=== PATIENT | male | born 1990 | race Caucasian/White ===

== ENCOUNTER 2020-04-05 19:26 | Emergency (ER) | payer MEDICAID, SELFPAY ==
[2020-04-05 19:41] VITALS: BP 144/96; PULSE 100; RESP 20; TEMP 36.8; O2SAT 97
--- NOTE | 2020-04-05 20:48 | ED.GENADULT ---
HPI - General Adult General Chief complaint: Wound/Laceration Stated complaint: boils on my butt Time Seen by Provider: 04/05/20 19:40 Source: patient Mode of arrival: ambulatory Limitations: no limitations History of Present Illness HPI narrative: Patient is a 29-year-old who presents with a week long duration of tender swollen area in the gluteal cleft patient notes he thought he had shaved his buttock from work did not realize he had an abscess patient notes aching pain with some nausea denies fever or vomiting patient denies similar occurrence injury or trauma tried [id number] medications for symptoms and is otherwise in no distress upon arrival Related Data Allergies Allergy/AdvReac Type Severity Reaction Status Date / Time No Known Allergies Allergy Verified 04/05/20 19:26 Review of Systems Review of Systems: All systems reviewed & are unremarkable except as noted in HPI and below PMFSH Past Medical History Medical History (Updated 04/05/20 @ 20:57 by Yao Segura PA-C) Hepatitis C Social History Social History (Updated 04/05/20 @ 20:52 by Yao Segura PA-C) Smoking status: Current every day smoker Gender identity (if verbalized by the patient): Male Exam Narrative: Exam Narrative: GENERAL: Well-appearing, well-nourished, and in no acute distress. HEAD: Normocephalic, atraumatic. EYES: PERRLA and EOMI. ENT: Nares clear, no rhinorrhea or epistaxis. Mucous membranes moist. EXTREMITIES: Normal range of motion. No edema. SKIN: Warm, dry, no rash. Red tender to centimeter area in the gluteal cleft consistent with pilonidal abscess. Patient with some pink tender area surrounding the perirectum consistent with diaper rash NEURO: No focal deficits. Alert and oriented x3. PSYCH: Normal mood and affect. Course Course Emergency Course: Patient had I&D of the abscess in the emergency department will be discharged home treated outpatient and given follow-up and reasons to return Vital Signs Vital signs: Vital Signs Temperature 98.2 F 04/05/20 19:41 Pulse Rate 100 04/05/20 19:41 Respiratory Rate 20 04/05/20 19:41 Blood Pressure 144/96 H 04/05/20 19:41 Pulse Oximetry 97 04/05/20 19:41 Temperature 98.2 F 04/05/20 19:41 Pulse Rate 100 04/05/20 19:41 Respiratory Rate 20 04/05/20 19:41 Blood Pressure 144/96 H 04/05/20 19:41 Pulse Oximetry 97 04/05/20 19:41 Procedures Abscess I/D other: Date of Incision: 04/05/20 Time of Incision: 20:55 Local Anesthetic: lidocaine 1% Technique: incised with #11 blade and probed loculations Irrigation: Yes Packing used?: iodoform I&D Results: Pus and Blood Medical Decision Making MDM Narrative Medical decision making narrative: Patient with abscess that was I&D it in the emergency department will be discharged home with plan follow-up with primary care and given reasons to return afebrile appearing no distress felt appropriate for outpatient reevaluation Vital Signs Vital Signs: Vital Signs Temperature 98.2 F 04/05/20 19:41 Pulse Rate 100 04/05/20 19:41 Respiratory Rate 20 04/05/20 19:41 Blood Pressure 144/96 H 04/05/20 19:41 Pulse Oximetry 97 04/05/20 19:41 Temperature 98.2 F 04/05/20 19:41 Pulse Rate 100 04/05/20 19:41 Respiratory Rate 20 04/05/20 19:41 Blood Pressure 144/96 H 04/05/20 19:41 Pulse Oximetry 97 04/05/20 19:41 Discharge Plan Discharge Clinical Impression: Pilonidal abscess, Abscess Patient Disposition: Home, Self-Care Condition: Stable Instructions: Antibiotic Form, Abscess (ED) Additional Instructions: Follow up with primary care in the next 2-3 days for re-evaluation and packing removal if placed take antibiotics as directed. return if symptoms worsen or concerns, any increase in redness swelling pain or fever over 100.5 If packing was placed it must come out in 3 days. Clean wound with mild soapy water.
[2020-04-05] MEDS: IBUPROFEN 600 MG TABLET PO (21:05)
== END 2020-04-05 21:07 | disposition home or self-care (01) ==
PROVIDERS: Emergency Provider Emergency Medicine
DX: L05.01 Pilonidal cyst with abscess (principal); F17.200 Nicotine dependence, unspecified, uncomplicated; Z86.19 Personal history of other infectious and parasitic diseases
CPT/HCPCS: 10061; 10080; 99283; A9270

== ENCOUNTER 2020-04-13 18:41 | Emergency (ER) | payer MEDICAID, SELFPAY ==
--- NOTE | ~2020-04-13 | CT_ITS ---
EXAMINATION: CT brain wo con INDICATION: Head injury COMPARISON: 06/11/2015 TECHNIQUE: Standard unenhanced head CT. The dose-length product (DLP) was 681.00 mGy-cm. The mA was a djusted according to patient size. Iterative reconstruction technique was employed. FINDINGS: There is no intracranial hemorrhage, acute infarction, or abnormal mass lesion. The ventric les are normal. There is no abnormal mass effect or midline shift. The carrillo-white matter differentiat ion is normal. The basal cisterns are patent. The orbits are normal. There is mild mucosal thickening of the paranasal sinuses. IMPRESSION: 1. No acute intracranial abnormality. Reviewed, dictated and finalized at location A. SEAM ENVELOPE MACHINE OPERATOR
--- NOTE | ~2020-04-13 | CT_ITS ---
EXAMINATION: CT facial & cervical spine wo DATE: 04/13/2020 19:46 INDICATION: Facial pain, head injury TECHNIQUE: Computed tomography (CT) of the maxillofacial region and cervical spine was performed with out intravenous contrast. The dose-length product (DLP) was 425.39 mGy-cm. Automated exposure control and iterative reconstruction technique were employed. COMPARISON: None FINDINGS: MAXILLOFACIAL CT: There is an old, healed depressed fracture of the left maxillary sinus. No acute fracture is identifi ed. There is nasal soft tissue swelling. Mild mucosal thickening is noted in the paranasal sinuses. T he left ostiomeatal complex is occluded. There is chronic rightward deviation of the nasal septum. CERVICAL SPINE CT: There is no fracture, dislocation, or subluxation. The vertebral body heights, alignment, and interve rtebral disc spaces are normal. The odontoid is intact. The prevertebral soft tissues are normal. IMPRESSION: 1. Minimal opacification of the paranasal sinuses without acute facial fracture identified. 2. Normal cervical spine. Reviewed, dictated and finalized at location A. ECTOR SOLDERING
[2020-04-13 18:54] VITALS: BP 100/61; PULSE 96; RESP 16; TEMP 36.6; O2SAT 100
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
[2020-04-13] MEDS: FLUORESCEIN SOD 1 MG/STRIP RIGHT EYE (19:21)
[2020-04-13] MEDS: TETRACAINE HCL 0.5% OPHTH SOLN 4 ML BTL 1 DROP RIGHT EYE (19:21)
--- NOTE | 2020-04-13 19:29 | PC.NURSE ---
patient ambulated to desk for 2nd attempt at visual acuity. states everything is blurry when attempting to read the chart with his left eye covered. right eye is constantly watering. pain is much better. check charted.
[2020-04-13] MEDS: TETANUS,DIPHTHERIA,AC PERTUSSIS ADULT (0.5 ML) BOOSTRIX IM (19:41)
--- NOTE | 2020-04-13 19:51 | PC.NURSE ---
patient back from CT. provider in room.
--- NOTE | 2020-04-13 20:04 | PC.NURSE ---
resting on stretcher. waiting for CT results. family member in room. c/o right eye pain. updated on treatment plan and expected wait time.
[2020-04-13] MEDS: oxyCODONE/ACETAMINOPHEN (*CRX) 5-325 MG TABLET 2 TABLET PO (20:58)
--- NOTE | 2020-04-13 21:00 | PC.NURSE ---
patient medicated as ordered.
--- NOTE | 2020-04-13 21:11 | PC.NURSE ---
this RN to bedside with Dr. Govea. discharge instructions and prescriptions reviewed with patient and . both verbalize understanding. has appointment on wednesday at [facility]. both parties aware.
[2020-04-13 21:12] VITALS: BP 162/88; PULSE 100; RESP 16; TEMP 36.8; O2SAT 96
== END 2020-04-13 21:14 | disposition home or self-care (01) ==
PROVIDERS: Emergency Provider Emergency Medicine; PCP Family Medicine
DX: S05.02XA Injury of conjunctiva and corneal abrasion without foreign body, left eye, initial encounter (principal); Y04.0XXA Assault by unarmed brawl or fight, initial encounter; Z23 Encounter for immunization; F17.210 Nicotine dependence, cigarettes, uncomplicated; F41.9 Anxiety disorder, unspecified; Z86.19 Personal history of other infectious and parasitic diseases
CPT/HCPCS: 70450; 70486; 72125; 90471; 90715; 99284; A9270

== ENCOUNTER 2020-12-03 19:03 | Emergency (ER) | payer BC, SELFPAY ==
[2020-12-03 19:17] VITALS: BP 134/85; PULSE 106; RESP 16; TEMP 36.4; O2SAT 96
--- NOTE | 2020-12-03 20:39 | ED.SKABFB ---
HPI - Skin/Abscess/Foreign Bdy General Chief complaint: Skin/Abscess/Foreign Body Stated complaint: Sores all over body History of Present Illness HPI narrative: This is a year old male that is very disheveled and has a lot of sores all over his body majority of it was on his back and arm. Patient states that the scabs and sore or his body are painful at time . Denies fever, nausea and or vomiting . Patient is questioning as to weather or not he is septic or not. Patient informs me he last used drugs yesterday. Patient states that the sores have been her for over a month. Patient states that he placed peroxide on the areas, neosporin. Related Data Home Medications Medication Instructions Recorded Confirmed No Home Medications 12/03/20 12/03/20 Allergies Allergy/AdvReac Type Severity Reaction Status Date / Time No Known Allergies Allergy Verified 12/03/20 20:11 Review of Systems Review of Systems: CONSTITUTIONAL: Denies fever, chills, or sweats. EYES: Denies visual changes, redness, or discharge. ENT: Denies rhinorrhea, congestion, sore throat, or otalgia. CARDIOVASCULAR:Denies chest pain, palpitations, or edema. RESPIRATORY: Denies cough or dyspnea. GASTROINTESTINAL: Denies abdominal pain, nausea, vomiting, or diarrhea. GENITOURINARY: Denies dysuria or hematuria. SKIN:reports rash or itching. MUSCULOSKELETAL:Denies back pain, joint pain, or myalgia. NEUROLOGIC: Denies headache, numbness, or weakness. PSYCHIATRIC:Denies anxiety or depression [facility] Social History Social History Smoking status: Current every day smoker Alcohol intake: never Comments At time as signature, I have reviewed and agree with nursing past medical, social, surgical and family history. Please see nursing chart for further information. There is no relevant family history pertinent to the presenting complaint. Exam Narrative: GENERAL:Well-appearing, Disheleved and in no acute distress. HEAD:Normocephalic, EYES: PERRLA ENT: Nares clear, no rhinorrhea or epistaxis. Mucous membranes moist. NECK: Supple. CHEST: No respiratory distress. HEART: Regular rate and rhythm. Normal peripheral pulses. ABDOMEN: Soft, nontender, nondistended, EXTREMITIES: Normal range of motion. No edema. SKIN: Warm, dry, Patient has multiple to many to count open areas in multiple stages of healing some with scabs some with open area with erythema and some completly healed on back bilateral arms, bilateral legs, and stomach NEURO: No focal deficits. Alert and oriented x3. Course BENCH LATHE OPERATOR/PA Physician Supervision discussed drug use with patient information given on drug detox and phone numbers given and help line given as well. Vital Signs Vital signs: Vital Signs Temperature 97.6 F 12/03/20 19:17 Pulse Rate 106 H 12/03/20 19:17 Respiratory Rate 16 12/03/20 19:17 Blood Pressure 134/85 12/03/20 19:17 Pulse Oximetry 96 12/03/20 19:17 Temperature 97.6 F 12/03/20 19:17 Pulse Rate 106 H 12/03/20 19:17 Respiratory Rate 16 12/03/20 19:17 Blood Pressure 134/85 12/03/20 19:17 Pulse Oximetry 96 12/03/20 19:17 MDM - Skin/Abscess/Foreign Bdy Differential Diagnosis Differential diagnosis: Likely abscess of skin or subcutaneous tissue, urticaria, herpes zoster, cellulitis, eczema, impetigo and contact dermatitis Discharge Plan Discharge Clinical Impression: Abscess of skin or subcutaneous tissue, MRSA infection Patient Disposition: Home, Self-Care Condition: Stable Instructions: Antibiotic Form, Acute Rash (ED), Methamphetamine Abuse (ED) Additional Instructions: Use skin creams/lotion, such as those containing calamine or pramoxine to reduce itchiness Avoid scratching when possible to prevent worsening of the condition and disruption of the skin that could lead to bacterial infection To relieve itching, place a cool washcloth or some ice over the area that itches, rather than scratching Return to the office or seek
== END 2020-12-03 20:48 | disposition home or self-care (01) ==
PROVIDERS: Emergency Provider Nurse Practitioner Family
DX: L02.414 Cutaneous abscess of left upper limb (principal); L02.413 Cutaneous abscess of right upper limb; L02.416 Cutaneous abscess of left lower limb; L02.415 Cutaneous abscess of right lower limb; L02.211 Cutaneous abscess of abdominal wall; B95.62 Methicillin resistant Staphylococcus aureus infection as the cause of diseases classified elsewhere; F17.200 Nicotine dependence, unspecified, uncomplicated
CPT/HCPCS: 99203; G0463

== ENCOUNTER 2020-12-08 17:07 | Emergency (ER) | payer BC, SELFPAY ==
[2020-12-08] VITALS (10 sets, daily range): BP systolic 134–148; BP diastolic 92–108; PULSE 67–92; RESP 15–20; TEMP 36.4–36.7; O2SAT 98–100
--- NOTE | ~2020-12-08 | CT_ITS ---
EXAMINATION: CT abdomen pelvis wo con DATE: 12/08/2020 19:13 INDICATION: Right flank pain. Right lower quadrant abdominal pain. TECHNIQUE: Computed tomography (CT) of the abdomen and pelvis was performed without intravenous contr ast. Automated exposure control and iterative reconstruction technique were employed. The dose-length product was 273.64 mGy-cm. COMPARISON: CT abdomen and pelvis 02/09/2017 FINDINGS: The visualized portions of the lung bases demonstrate a pneumatocele in left lower lobe. No pleural effusion. The heart size is normal. No pericardial effusion. There is diffuse hepatic steato sis. The gallbladder is normal. Calcifications in the spleen are consistent with old granulomatous di sease. The pancreas and adrenal glands are normal. There is mild right hydronephrosis and hydroureter . There is a 4 mm stone in the mid right ureter where the ureter crosses the iliac vessels. There are three 1-2 mm stones in left kidney. There are no dilated loops of bowel. The appendix is not visuali zed. There are no pathologically enlarged lymph nodes. There is no free intraperitoneal fluid. There is mild thoracolumbar spondylosis. IMPRESSION: 1. 4 mm stone in mid right ureter with mild right hydronephrosis and proximal hydroureter. 2. Small nonobstructing left kidney stones. Reviewed, dictated and finalized at location A. IMPRESSION: 1. 4 mm stone in mid right ureter with mild right hydronephrosis and proximal h ydroureter. 2. Small nonobstructing left kidney stones.
[2020-12-08 18:01] LABS: Basophils Absolute Auto 0.1 K/mm3 (0.0-0.1); Basophils Percent Auto 0.7 % (0.2-1.2); Eosinophils Percent Auto 0.3 % (0-4.4); Hematocrit 47.2 % (42.0-52.0); Hemoglobin 15.6 g/dL (14.0-18.0); Immature Granulocyte Absolute 0.06 K/mm3 (0.00-0.031); Immature Granulocyte Percent A 0.5 % (0-0.5); Lymphocytes Absolute Auto 2.26 K/mm3 (0.9-3.2); Lymphocytes Percent Auto 18.4 % (18.3-44.2); Mean Corpuscular HGB Conc 33.1 g/dl (32-36); Mean Corpuscular Hemoglobin 29.4 pg (26-34); Mean Corpuscular Volume 89.1 fl (80-100); Mean Platelet Volume 9.3 fl (7.4-10.4); Monocytes Absolute Auto 0.9 K/mm3 (0.1-0.6); Monocytes Percent Auto 7.6 % (2.6-8.5); Neutrophils Absolute Auto 8.9 K/mm3 (1.3-6.7); Neutrophils Percent Auto 72.5 % (45.5-73.1); Platelet Count Result 248 k/mm3 (150-375); Red Cell Distribution Width 11.5 % (11.5-14.5); White Blood Count 12.3 K/mm3 (4.5-10.0)
[2020-12-08 18:11] LABS: Add Urine Microscopic? YES; Appearance Urine Clear (Clear); Bilirubin Urine Negative (Negative); Blood Urine 2+ (Negative); Color Urine Yellow (Yellow); Glucose Urine UA Negative (Negative); Ketones Urine Negative (Negative); Leukocyte Esterase Ur Negative LEU/UL (Negative); Mucus Urine Rare /lpf; Nitrate Urine Negative (Negative); Protein Urine Negative (Negative); RBC Urine 21-50 /hpf (0-2); Urobilinogen Urine Negative mg/dL (<2.0); WBC Urine 0-3 /hpf
[2020-12-08 18:16] LABS: Alanine Aminotransferase 132 U/L (4-50); Albumin Level 4.4 g/dL (3.5-5.1); Alkaline Phosphatase 78 U/L (38-126); Anion Gap 9 mmol/L (8-16); Aspartate Amino Transferase 62 U/L (17-59); Bilirubin,Total 0.5 mg/dL (0.2-1.3); Blood Urea Nitrogen 13 mg/dL (9-20); Calcium 9.8 mg/dL (8.4-10.2); Carbon Dioxide 31 mmol/L (22-30); Chloride 103 mmol/L (98-107); Estimated CRCL calculation 82 ml/min; Estimated Glomerular Filt Rate > 60; Glucose 107 mg/dL (65-110); Lipase 23 U/L (23-300); Potassium 3.9 mmol/L (3.4-5.0); Sodium 143 mmol/L (137-145)
--- NOTE | 2020-12-08 19:44 | ED.ABDPAIN ---
HPI - Abdominal Pain General Chief Complaint: Abdominal Pain Stated Complaint: right lower abd pain Time Seen by Provider: 12/08/20 18:49 Source: patient Mode of arrival: ambulatory Limitations: no limitations History of Present Illness HPI narrative: 30-year-old male Recently treated for a pustular MRSA skin infection Reports having a little bit of right-sided abdominal discomfort for a couple of days but about 5 hours ago the experience became much more intense with severe pain and nausea and vomiting He has not had a fever he has not had any diarrhea or constipation He does think he may have had some hematuria but does not have any dysuria or frequency Related Data Allergies Allergy/AdvReac Type Severity Reaction Status Date / Time No Known Allergies Allergy Verified 04/08/20 14:18 Review of Systems Review of Systems: All systems reviewed & are unremarkable except as noted in HPI and below Constitutional: Constitutional: Reports no additional constitutional complaints, Denies chills, Denies fever(s) and Denies headache(s) Eyes: Eyes: Reports no additional eye complaints and Denies change in vision ENT: Denies headache(s) and Denies sore throat Cardiovascular: Cardiovascular: Denies chest pain and Denies dyspnea Respiratory: Respiratory: Denies cough and Denies dyspnea Gastrointestinal: Gastrointestinal: Reports abdominal pain, Denies bloating, Denies constipation, Denies diarrhea, Reports nausea and Reports vomiting Genitourinary: Genitourinary: Reports hematuria, Denies dysuria and Denies urinary frequency Musculoskeletal: Musculoskeletal: Denies deformity, Denies arthralgias, Denies joint swelling and Denies numbness Integumentary/Breasts: Skin/Breast: Reports erythema, Reports rash and Denies wounds Neurologic: Denies headache(s), Denies focal weakness and Denies numbness Psychiatric: Psychiatric: Reports no additional psychiatric complaints Endocrine: Endocrine: Reports no additional endocrine complaints Hematologic/Lymphatic: Hematologic/Lymphatic: Reports no additional hematologic/lymphatic complaints Allergic/Immunologic: Allergic/Immunologic: Reports no additional allergic/immunologic complaints [facility] Past Medical History Medical History Allergic rhinitis Anxiety H/O intravenous drug use in remission Hepatitis C Surgical History Surgical History History of appendectomy Social History Social History Years smoked: 14 Smoking status: Current every day smoker Tobacco type: cigarettes Gender identity (if verbalized by the patient): Male Exam Const: General: cooperative, no acute distress and alert Orientation/consciousness: patient oriented x3 (alert) HENMT: Head: normal to inspection, normocephalic and atraumatic Ears: external ears normal General nose exam: no epistaxis Eyes: Conjunctivae: conjunctivae normal EOM: EOMs intact bilaterally Neck: Neck: normal visual inspection, supple and no JVD Resp: Effort & Inspection: normal respiratory effort and not labored Auscultation: other (BS =) Cardio: Rate: regular rate Rhythm: regular rhythm Heart sounds: no murmurs GI: Inspection: non-distended GI Palp: Yes Soft to palpation, No Tenderness to palpation present (GI), No Guarding due to palpation present (GI) and No Rebound tenderness present : General: Yes no CVA tenderness Skin: General skin exam: normal color and no rashes or lesions noted Other: Numerous healing and scabbed over lesions on the upper back and arms Neuro: General: patient oriented x3 (alert) and moves all extremities Speech: normal speech Extrem: General: no edema Psych: Affect: normal affect Course Vital Signs Vital signs: Vital Signs Temperature 36.4 C L 12/08/20 17:27 Pulse Rate 92 12/08/20 17:27 Respiratory Rat
[2020-12-08] MEDS: KETOROLAC 30 MG/ML VIAL (*BKC) IV PUSH (19:48)
[2020-12-08] MEDS: ONDANSETRON INJ 4 MG/2 ML VIAL IV PUSH (19:48)
[2020-12-08] MEDS: TAMSULOSIN HCL 0.4 MG CAPSULE PO (19:55)
[2020-12-08] MEDS: oxyCODONE/ACETAMINOPHEN (*CRX) 5-325 MG TABLET 1 TABLET PO (20:51)
== END 2020-12-08 21:31 | disposition home or self-care (01) ==
PROVIDERS: Emergency Provider Emergency Medicine
DX: N23 Unspecified renal colic (principal); F17.210 Nicotine dependence, cigarettes, uncomplicated; F41.9 Anxiety disorder, unspecified
CPT/HCPCS: 36415; 74176; 80053; 81001; 83690; 85025; 96374; 96375; 99284; A9270; J1885; J2405

== ENCOUNTER 2020-12-19 08:20 | Emergency (ER) | payer BC, SELFPAY ==
[2020-12-19] VITALS (15 sets, daily range): BP systolic 121–141; BP diastolic 78–115; PULSE 50–73; RESP 14–16; O2SAT 98–100
--- NOTE | ~2020-12-19 | CT_ITS ---
EXAMINATION: CT abdomen pelvis w con DATE: 12/19/2020 10:22 INDICATION: Right lower quadrant abdominal pain. Hematuria. TECHNIQUE: Computed tomography (CT) of the abdomen and pelvis was performed with 100 mL Omnipaque-350 intravenous contrast. Automated exposure control and iterative reconstruction technique were employe d. The dose-length product was 285.12 mGy-cm. COMPARISON: 12/08/2020 FINDINGS: There is motion artifact in the pelvis. Pneumatocele in the left lower lobe. Heart size is normal. No pericardial or pleural effusion. Liver, gallbladder, spleen, pancreas and bilateral adrenal glands a re normal. A couple unchanged 1-2 mm stones in the left kidney. 3-4 mm stone previously seen in the m id right ureter has advanced, now seen in the distal ureter approximately 2 cm from the ureterovesicu lar junction. Persistent mild to moderate right hydroureteronephrosis. Partially decompressed bladder is unremarkable. Bowels are unremarkable with no obstruction. No free intraperitoneal gas or fluid. No pathologically enlarged abdominal or pelvic lymphadenopathy. Mild thoracolumbar spondylosis. IMPRESSION: 1. Advancement of a 3-4 mm stone now in the distal right ureter with persistent mild to moderate righ t hydroureteronephrosis. 2. A couple unchanged nonobstructing 1 cm left renal stones. Reviewed, dictated and finalized at location A. IMPRESSION: 1. Advancement of a 3-4 mm stone now in the distal right ureter with persistent mild to moderate right hydroureteronephrosis. 2. A couple unchanged nonobstructing 1 cm left renal stones.
[2020-12-19 08:37] LABS: Basophils Absolute Auto 0.1 K/mm3 (0.0-0.1); Basophils Percent Auto 0.8 % (0.2-1.2); Eosinophils Absolute Auto 0.1 K/mm3 (0-0.3); Eosinophils Percent Auto 1.1 % (0-4.4); Hematocrit 41.7 % (42.0-52.0); Hemoglobin 13.6 g/dL (14.0-18.0); Immature Granulocyte Absolute 0.02 K/mm3 (0.00-0.031); Immature Granulocyte Percent A 0.3 % (0-0.5); Lymphocytes Percent Auto 29.2 % (18.3-44.2); Mean Corpuscular HGB Conc 32.6 g/dl (32-36); Mean Corpuscular Hemoglobin 28.9 pg (26-34); Mean Corpuscular Volume 88.5 fl (80-100); Mean Platelet Volume 9.6 fl (7.4-10.4); Monocytes Absolute Auto 0.6 K/mm3 (0.1-0.6); Monocytes Percent Auto 8.8 % (2.6-8.5); Neutrophils Absolute Auto 4.3 K/mm3 (1.3-6.7); Neutrophils Percent Auto 59.8 % (45.5-73.1); Platelet Count Result 211 k/mm3 (150-375); Red Blood Count 4.71 M/mm3 (4.6-6.20); Red Cell Distribution Width 11.4 % (11.5-14.5); White Blood Count 7.2 K/mm3 (4.5-10.0)
[2020-12-19 08:56] LABS: Add Urine Microscopic? YES; Appearance Urine Cloudy (Clear); Bilirubin Urine Negative (Negative); Blood Urine 3+ (Negative); Color Urine Yellow (Yellow); Glucose Urine UA Negative (Negative); Ketones Urine Trace mg/dL (Negative); Leukocyte Esterase Ur Negative LEU/UL (Negative); Mucus Urine Few /lpf; Nitrate Urine Negative (Negative); Protein Urine 1+ mg/dL (Negative); RBC Urine >75 /hpf (0-2); Specific Grav Ur 1.023 (1.001-1.035); WBC Urine 0-3 /hpf
--- NOTE | 2020-12-19 09:04 | ED.GENADULT ---
HPI - General Adult General Chief complaint: Abdominal Pain Stated complaint: ABD PAIN/BLOOD IN URINE Time Seen by Provider: 12/19/20 09:03 History of Present Illness HPI narrative: Patient is a 30-year-old male who comes emergency room today complaining of pain in right lower quadrant for the last 1 day. Notes that his urine is dark-colored. Says his pain is severe denies any other symptoms. Initially tells me he has never had this pain before but then he goes on to tell me that he was seen at this hospital last week (i do not see that encounter in the EMR), and was told that he had a kidney stone that needs to pass and says this pain feels similar to that but much worse. Denies any chest pain, fevers, shortness of breath regular symptoms. He says that he has had his appendix removed Related Data Allergies Allergy/AdvReac Type Severity Reaction Status Date / Time No Known Allergies Allergy Verified 12/03/20 20:11 Review of Systems Constitutional: Constitutional: Reports as per HPI, Denies fever(s), Denies night sweats and Denies weakness Cardiovascular: Cardiovascular: Denies chest pain, Denies edema, Denies leg edema, Denies dyspnea and Denies orthopnea Respiratory: Respiratory: Denies cough and Denies dyspnea Gastrointestinal: Gastrointestinal: Reports as per HPI, Reports abdominal pain, Denies constipation, Denies diarrhea, Denies nausea and Denies vomiting Genitourinary: Genitourinary: Reports as per HPI Musculoskeletal: Musculoskeletal: Denies abnormal gait, Denies back pain, Denies numbness and Denies tingling Neurologic: Denies Abnormal speech present, Denies abnormal gait, Denies numbness, Denies tingling and Denies weakness Psychiatric: Psychiatric: Denies homicidal ideation and Denies suicidal ideation [facility] Social History Social History Smoking status: Current every day smoker Alcohol intake: never Exam Narrative: Uncomfortable appearing. Unkempt. Cooperative with exam Const: General: cooperative, healthy appearing, comfortable, no acute distress, well developed, alert, awake and Physically active Orientation/consciousness: patient oriented x3 HENMT: Head: normal to inspection, normocephalic and atraumatic Ears: external ears normal General nose exam: Normal external nose present Eyes: Pupils: Equal, round and reactive pupils present EOM: EOMs intact bilaterally Neck: Neck: normal visual inspection Chest: Chest palpation & inspection: normal inspection of the chest and no tenderness Resp: Effort & Inspection: normal respiratory effort and able to speak in complete sentences Auscultation: clear to auscultation bilaterally Cardio: Rate: regular rate Rhythm: regular rhythm GI: Inspection: normal to inspection GI Palp: Yes abdominal tenderness (Tender to palpate over right lower quadrant and right flank) : General: Yes CVA tenderness (Right CVA tenderness) Back/Spine/Pelvis: Back: no CVA tenderness Skin: General skin exam: normal color and no rashes or lesions noted Lesions: no lesions Neuro: General: patient oriented x3, no focal motor deficits and CN's II-XI intact bilaterally Cranial nerves: Yes Equal, round and reactive pupils present Speech: No Abnormal speech present Extrem: General: normal to inspection and full ROM Psych: Appearance: grossly normal and well kempt Mental Status: mental status grossly normal Speech and movement: Normal speech and movement present Affect: normal affect Thought process: Normal thought process present Course Course Emergency Course: 1200 Rechecked patient. Feeling much better. Resting comfortably. CT showing kidney stone that is slowly working its way out. Patient agreeable for plan for discharge. Vital Signs Vital signs: Vital Signs Pulse Rate 73 12/19/20 08:20 Respiratory Rate 16 12/19/20 08:20 Blood Pressure 141/115 H 12/19/20 08:20 Pulse Oximetry 100 12/19/20 08:20 Pulse Rate 73 12/19/20 08:20 Respirat
[2020-12-19 09:27] LABS: Anion Gap 6 mmol/L (8-16); Blood Urea Nitrogen 13 mg/dL (9-20); Calcium 8.8 mg/dL (8.4-10.2); Carbon Dioxide 27 mmol/L (22-30); Chloride 108 mmol/L (98-107); Estimated CRCL calculation 83 ml/min; Estimated Glomerular Filt Rate > 60; Glucose 89 mg/dL (65-110); Potassium 3.8 mmol/L (3.4-5.0); Sodium 141 mmol/L (137-145)
[2020-12-19] MEDS: LACTATED RINGERS 1,000 ML 999 ML IV CONT (10:28)
--- NOTE | 2020-12-19 10:29 | PC.NURSE ---
pt refuses toradol. states he needs something stronger for pain and the last time he was here he got percocet.
[2020-12-19] MEDS: KETOROLAC 30 MG/ML VIAL (*BKC) IV PUSH (11:52)
== END 2020-12-19 12:35 | disposition home or self-care (01) ==
PROVIDERS: Emergency Provider Emergency Medicine
DX: N13.2 Hydronephrosis with renal and ureteral calculous obstruction (principal); F17.200 Nicotine dependence, unspecified, uncomplicated
CPT/HCPCS: 36415; 74177; 80048; 81001; 85025; 96361; 96374; 99284; J1885; J7120; Q9967

== ENCOUNTER 2021-01-25 11:35 | Emergency (ER) | payer BC, SELFPAY ==
[2021-01-25 11:38] VITALS: BP 127/73; PULSE 97; RESP 18; TEMP 36.7; O2SAT 100
--- NOTE | 2021-01-25 12:44 | ED.GENADULT ---
HPI - General Adult General Chief complaint: Dental/Oral Stated complaint: toothache Time Seen by Provider: 01/25/21 11:45 Source: patient Mode of arrival: ambulatory Limitations: no limitations History of Present Illness HPI narrative: Patient presents for evaluation of left lower dental pain for the last week, worse in the last 24 hours. He states the pain is sharp, throbbing, 8 out of 10 in severity. No fever, chills, nausea, vomiting, trismus, problems handling secretions. He has been taking ibuprofen for his symptoms which has helped. He recently ran out of medication. He contacted a dentist and has an appointment in approximately 1 month. No additional complaints or concerns. Related Data Allergies Allergy/AdvReac Type Severity Reaction Status Date / Time No Known Allergies Allergy Verified 01/25/21 11:44 Review of Systems Review of Systems: CONSTITUTIONAL: Denies fever, chills, or sweats. EYES: Denies visual changes, redness, or discharge. ENT: Reports left lower dental pain. Denies rhinorrhea, congestion, sore throat, or otalgia. CARDIOVASCULAR: Denies chest pain, palpitations, or edema. RESPIRATORY: Denies cough or dyspnea. GASTROINTESTINAL: Denies abdominal pain, nausea, vomiting, or diarrhea. GENITOURINARY: Denies dysuria or hematuria. SKIN: Denies rash or itching. MUSCULOSKELETAL: Denies back pain, joint pain, or myalgia. NEUROLOGIC: Denies headache, numbness, dizziness, or weakness. PSYCHIATRIC: Denies anxiety or depression. PMFSH Past Medical History Medical History Allergic rhinitis Anxiety H/O intravenous drug use in remission Hepatitis C Surgical History Surgical History History of appendectomy Family History Family History Mother No pertinent past medical history Social History Social History Years smoked: 14 Smoking status: Current every day smoker Tobacco type: cigarettes Gender identity (if verbalized by the patient): Male Exam Narrative: GENERAL: Well-appearing, well-nourished, and in no acute distress. HEAD: Normocephalic, atraumatic. EYES: PERRLA and EOMI. ENT: Nares clear, no rhinorrhea or epistaxis. Mucous membranes moist. Oropharynx without tonsillar hypertrophy exudate or other lesions. Multiple absent teeth. Overall poor dental hygiene. Left lower molar is fractured without visible or palpable abscess. Bilateral TMs pearly carrillo nonbulging NECK: Supple. No adenopathy or masses. No carotid bruits or JVD CHEST: Clear to auscultation. No respiratory distress. No wheezes rales or rhonchi HEART: Regular rate and rhythm. No murmur heard. Normal peripheral pulses. ABDOMEN: Soft, nontender, nondistended, normal active bowel sounds. EXTREMITIES: Normal range of motion. No edema. SKIN: Warm, dry, no rash. NEURO: No focal deficits. Alert and oriented x3. PSYCH: Normal mood and affect. Course Course Emergency Course: Is a 30-year-old male who presented with complaints of left lower dental pain. On exam he has a dental fracture without visible or palpable abscess. He was instructed to follow-up outpatient for further evaluation and treatment. He was advised to keep his dental appointment and see if he can be evaluated sooner. He should return for worsening symptoms. Patient agreed with plan of care. Vital Signs Vital signs: Vital Signs Temperature 36.7 C 01/25/21 11:38 Pulse Rate 97 01/25/21 11:38 Respiratory Rate 18 01/25/21 11:38 Blood Pressure 127/73 01/25/21 11:38 Pulse Oximetry 100 01/25/21 11:38 Temperature 36.7 C 01/25/21 11:38 Pulse Rate 97 01/25/21 11:38 Respiratory Rate 18 01/25/21 11:38 Blood Pressure 127/73 01/25/21 11:38 Pulse Oximetry 100 01/25/21 11:38 Medical Decision David
[2021-01-25 13:11] VITALS: BP 123/92; PULSE 77; RESP 18; TEMP 36.7; O2SAT 100
== END 2021-01-25 13:13 | disposition home or self-care (01) ==
PROVIDERS: Emergency Provider Nurse Practitioner; PCP Family Medicine
DX: K03.81 Cracked tooth (principal); Z86.19 Personal history of other infectious and parasitic diseases; F17.210 Nicotine dependence, cigarettes, uncomplicated
CPT/HCPCS: 99283

== ENCOUNTER 2021-02-26 07:08 | Emergency (ER) | payer BC, SELFPAY ==
--- NOTE | ~2021-02-26 | XR_ITS ---
EXAMINATION: XR hand RT min 3V INDICATION: Four views of the right hand are obtained. TECHNIQUE: Three views of the right hand on four images COMPARISON: None available FINDINGS: There is no fracture, dislocation, or subluxation. The bones and joint spaces are normal. N o radiopaque foreign body is identified. IMPRESSION: 1. No acute osseous abnormality. Reviewed, dictated and finalized at location A.
[2021-02-26 07:10] VITALS: BP 108/74; PULSE 80; RESP 16; TEMP 36.3; O2SAT 100
--- NOTE | 2021-02-26 07:21 | ED.WOUNDLAC ---
HPI - Wound/Laceration General Chief Complaint: Wound/Laceration <Dario Carrasco DO - Last Filed: 02/26/21 11:48> Stated Complaint: 2 lac to R hand from piece of glass <Dario Carrasco DO - Last Filed: 02/26/21 11:48> Source: RN notes reviewed <Dario Carrasco DO - Last Filed: 02/26/21 11:48> History of Present Illness HPI narrative: Patient presents emergency department from home via EMS for right hand laceration. Patient states he is holding a window that fell and the glass broke causing a laceration to his right hand. Laceration is over the palmar aspect of his right hand over the lateral aspect he is unsure of his last tetanus shot. Denies taking pain medication for the symptoms he denies any other trauma or injury denies any known glass stuck in his finger states he does have a large amount of pain in this area and states that hand did appear to be smashed by 1 dose is following denies any numbness or tingling of the extremities <Dario Carrasco DO - Last Filed: 02/26/21 11:48> Related Data Allergies/Adverse Reactions: Allergies Allergy/AdvReac Type Severity Reaction Status Date / Time No Known Allergies Allergy Verified 02/26/21 07:26 <Dario Carrasco DO - Last Filed: 02/26/21 11:48> Review of Systems Review of Systems: Gen.: Denies fevers or chills Musculoskeletal: See HPI Neuro: Denies numbness, tingling, weakness Skin: See HPI Endo: Denies DM <Dario Carrasco DO - Last Filed: 02/26/21 11:48> PMFSH Past Medical History Medical History: Medical History Allergic rhinitis Anxiety H/O intravenous drug use in remission Hepatitis C <Dario Carrasco DO - Last Filed: 02/26/21 11:48> Surgical History Surgical History: Surgical History History of appendectomy <Dario Carrasco DO - Last Filed: 02/26/21 11:48> Family History Family History: Family History Mother No pertinent past medical history <Dario Carrasco DO - Last Filed: 02/26/21 11:48> Social History Social History: Social History Years smoked: 14 Smoking status: Current every day smoker Tobacco type: cigarettes Gender identity (if verbalized by the patient): Male <Dario Carrasco DO - Last Filed: 02/26/21 11:48> Exam Narrative: APPEARANCE: No acute distress, nontoxic, resting in bed Eyes: EOMI HEENT: Normocephalic, atraumatic, RESPIRATORY: No respiratory distress MUSCULOSKELETAl: Right hand has a 3 cm laceration over the palmar lateral aspect just proximal to the base of the fourth and fifth digit, there is linear and deep with mild venous bleeding no foreign bodies, there is full flexion-extension of all 5 MCP and IP joints, capillary refill less than 3 seconds neurovascular intact NEURO: Awake and alert. Following commands, speech normal, no focal deficits SKIN:: Warm, dry. Normal Color no rash or lesions <Dario Carrasco DO - Last Filed: 02/26/21 11:48> Course Course Emergency Course: After my initial exam the patient now tells nursing staff has been having thoughts of harming himself I went back to evaluate the patient patient is ANO x3 he states he is homeless he states he does have drug addiction problems states he does have intermittent thoughts of harming himself he states at times he thinks about overdosing on his street drugs. He denies any harm to himself today and states his hand was from the glass from the window and he did not try to self harm himself patient evaluated by crisis chief of pediatric urology Patient evaluated by [facility] crisis chief of pediatric urology Yamilka. At this time is felt the patient is safe for discharge home he was given a safety plan information for drug rehab Patient reevaluated denies any suicidal rolly
[2021-02-26] MEDS: IBUPROFEN 600 MG TABLET PO (07:35)
[2021-02-26 07:59] LABS: Basophils Percent Auto 0.6 % (0.2-1.2); Eosinophils Absolute Auto 0.2 K/mm3 (0-0.3); Eosinophils Percent Auto 2.9 % (0-4.4); Hematocrit 39.9 % (42.0-52.0); Hemoglobin 13.4 g/dL (14.0-18.0); Immature Granulocyte Absolute 0.02 K/mm3 (0.00-0.031); Immature Granulocyte Percent A 0.3 % (0-0.5); Lymphocytes Absolute Auto 1.47 K/mm3 (0.9-3.2); Lymphocytes Percent Auto 20.4 % (18.3-44.2); Mean Corpuscular HGB Conc 33.6 g/dl (32-36); Mean Corpuscular Hemoglobin 30.2 pg (26-34); Mean Corpuscular Volume 90.1 fl (80-100); Mean Platelet Volume 9.3 fl (7.4-10.4); Monocytes Absolute Auto 0.7 K/mm3 (0.1-0.6); Monocytes Percent Auto 9.6 % (2.6-8.5); Neutrophils Absolute Auto 4.8 K/mm3 (1.3-6.7); Neutrophils Percent Auto 66.2 % (45.5-73.1); Platelet Count Result 153 k/mm3 (150-375); Red Blood Count 4.43 M/mm3 (4.6-6.20); White Blood Count 7.2 K/mm3 (4.5-10.0)
[2021-02-26 08:09] LABS: Alanine Aminotransferase 184 U/L (4-50); Albumin Level 3.9 g/dL (3.5-5.1); Alkaline Phosphatase 146 U/L (38-126); Anion Gap 7 mmol/L (8-16); Aspartate Amino Transferase 118 U/L (17-59); Bilirubin,Total 0.6 mg/dL (0.2-1.3); Blood Urea Nitrogen 20 mg/dL (9-20); Calcium 8.9 mg/dL (8.4-10.2); Carbon Dioxide 33 mmol/L (22-30); Chloride 104 mmol/L (98-107); Estimated CRCL calculation 110 ml/min; Estimated Glomerular Filt Rate > 60; Glucose 131 mg/dL (65-110); Potassium 3.6 mmol/L (3.4-5.0); Sodium 144 mmol/L (137-145)
[2021-02-26 08:09] LABS: Ethanol < 10 mg/dL (<10)
[2021-02-26 09:40] LABS: Add Urine Microscopic? YES; Appearance Urine Clear (Clear); Bilirubin Urine Negative (Negative); Blood Urine Negative (Negative); Color Urine Yellow (Yellow); Glucose Urine UA Negative (Negative); Ketones Urine Negative (Negative); Leukocyte Esterase Ur Negative LEU/UL (Negative); Mucus Urine Rare /lpf; Nitrate Urine Negative (Negative); Protein Urine 1+ mg/dL (Negative); RBC Urine 0-2 /hpf (0-2); Specific Grav Ur 1.023 (1.001-1.035); WBC Urine 0-3 /hpf
[2021-02-26 10:12] LABS: Amphetamine Screen Urine Positive (Negative); Barbiturate Screen Urine Negative (Negative); Benzodiazepines Screen Urine Positive (Negative); Cannabinoid Screen Urine Positive (Negative); Cocaine Screen Urine Negative (Negative); Methadone Screen Urine Negative (Negative); Opiate Screen Urine Negative (Negative); Phencyclidine Screen Urine Negative (Negative)
--- NOTE | 2021-02-26 10:23 | PC.NURSE ---
DE FROM CRISIS NOTIFIED REGARDING PT AND STATES SHE WILL BE OUT NIGEL TO SPEAK WITH HIM.
--- NOTE | 2021-02-26 11:05 | PC.NURSE ---
DE FROM CRISIS HERE TO EVAL PT
[2021-02-26 12:01] VITALS: BP 116/80; PULSE 90; RESP 16; O2SAT 99
== END 2021-02-26 12:06 | disposition home or self-care (01) ==
PROVIDERS: Emergency Provider Emergency Medicine
DX: S61.411A Laceration without foreign body of right hand, initial encounter (principal); F32.9 Major depressive disorder, single episode, unspecified; F19.10 Other psychoactive substance abuse, uncomplicated; W25.XXXA Contact with sharp glass, initial encounter
CPT/HCPCS: 12002; 36415; 73130; 80053; 80307; 81001; 84443; 85025; 99283; A9270

== ENCOUNTER 2023-04-12 16:31 | Emergency (ER) | payer BC, SELFPAY ==
--- NOTE | ~2023-04-12 | XR_ITS ---
EXAMINATION: XR hand RT min 3V INDICATION: Right hand pain and swelling, initial encounter TECHNIQUE: Two views of the right hand are obtained. COMPARISON: 02/26/2021 FINDINGS: There is an acute, traumatic fracture at the distal aspect of the fifth metacarpal. There a re approximately 40 degrees of palmar angulation at the fracture site. The joint spaces are normal. S oft tissue swelling is seen in the medial hand. IMPRESSION: 1. Acute distal fracture of the fifth metacarpal with palmar angulation. Reviewed, dictated and finalized at location B. R [employer]
[2023-04-12 16:35] VITALS: BP 130/75; PULSE 90; RESP 18; TEMP 37.2; O2SAT 97
[2023-04-12] MEDS: TETANUS,DIPHTHERIA,AC PERTUSSIS ADULT (0.5 ML) BOOSTRIX IM (17:40)
[2023-04-12] MEDS: HYDROcodone/acetaminophen (*CRX) 5-325 MG TABLET 1 TAB PO (17:40)
--- NOTE | 2023-04-12 17:46 | ED.UPPEXIN ---
HPI - Extremity Injury (Upper) General Chief Complaint: Extremity Injury, Upper Stated Complaint: right hand injury Time Seen by Provider: 04/12/23 17:26 Source: patient Mode of arrival: ambulatory Limitations: no limitations History of Present Illness HPI narrative: This is a 32-year-old male that presents to the emergency department for right hand injury sustained 2 days ago. Reports he fell off of his skateboard. Caught himself with his right hand. He has had worsening pain and swelling since. He did not hit his head or lose consciousness. No other injuries are focal areas of pain. Reports decreased ROM. Denies numbness. Related Data Allergies Allergy/AdvReac Type Severity Reaction Status Date / Time No Known Allergies Allergy Verified 04/12/23 17:19 Review of Systems Review of Systems: CONSTITUTIONAL: Denies fever MUSCULOSKELETAL: Reports joint pain, and myalgia. NEUROLOGIC: Denies numbness All systems reviewed & are unremarkable except as noted in HPI and below PMFSH Past Medical History Medical History Allergic rhinitis Anxiety H/O intravenous drug use in remission Hepatitis C Surgical History Surgical History History of appendectomy Family History Family History Mother No pertinent past medical history Social History Social History (System 06/19/21 @ 14:19 by Mar Mcgee) Years smoked: 14 Smoking status: Current every day smoker Tobacco type: cigarettes Alcohol intake: never Gender identity (if verbalized by the patient): Male Exam Narrative: GENERAL: Well-appearing, well-nourished, and in no acute distress. HEAD: Normocephalic, atraumatic. EYES: EOMI. EXTREMITIES: Decreased active ROM in the right 4th and 5th fingers with mild edema. Normal radial pulse. Normal sensation. Abrasion to the right hand overlying the distal 5th metacarpal laterally. No erythema or warmth SKIN: Warm, dry, no rash. NEURO: No focal deficits. Alert and oriented x3. PSYCH: Normal mood and affect Course Course Emergency Course: patient updated on workup and agrees with plan of care Vital Signs Vital signs: Vital Signs Temperature 99 F 04/12/23 16:35 Pulse Rate 90 04/12/23 16:35 Respiratory Rate 18 04/12/23 16:35 Blood Pressure 130/75 04/12/23 16:35 Pulse Oximetry 97 04/12/23 16:35 Temperature 99 F 04/12/23 16:35 Pulse Rate 90 04/12/23 16:35 Respiratory Rate 18 04/12/23 16:35 Blood Pressure 130/75 04/12/23 16:35 Pulse Oximetry 97 04/12/23 16:35 Procedures Laceration Laceration 1: Date: 04/12/23 Time: 17:54 Site: hand Side (If applicable): right Size (cm): 1 Description: flap Pre-repair: irrigated ====== Skin Level ====== ====== Subcutaneous Layer ====== ====== Muscle Layer ====== ====== Tendon Layer ====== Dressing: Wound cleansed and covered with antibiotic ointment and a Band-Aid MDM - Extremity Injury (Upper) MDM Narrative Medical decision making narrative: Patient presents to the emergency department for right hand injury sustained to days ago. Reports injuring it skateboarding. Right hand x-ray shows a fracture of the 5th metacarpal bone distally. Patient is neurovascularly intact. He had a abrasion in the area. This was cleansed and covered with antibiotic ointment and a bandage. Placed in a ulnar gutter splint and given follow-up with Hand surgery. He was given warnings to return to the ER Differential Diagnosis Differential diagnosis: Likely finger sprain and fracture of hand Imaging Data Radiologist's impression: ITS Impressions Hand X-Ray 04/12/23 16:55 IMPRESSION: 1. Acute distal fracture of the fifth metacarpal with palmar angulation. Critica
== END 2023-04-12 18:15 | disposition home or self-care (01) ==
LOC: ANHED 17:51
PROVIDERS: Emergency Provider Physician Assistant
DX: S62.306A Unspecified fracture of fifth metacarpal bone, right hand, initial encounter for closed fracture (principal); S60.416A Abrasion of right little finger, initial encounter; F17.210 Nicotine dependence, cigarettes, uncomplicated; Z23 Encounter for immunization; V00.131A Fall from skateboard, initial encounter
CPT/HCPCS: 29125; 73130; 90471; 90715; 99284; A9270

== ENCOUNTER → 2023-08-18 12:22 | Outpatient (CLI) | payer OTHER, SELFPAY ==
--- NOTE | ~2023-08-18 | XR_ITS ---
EXAMINATION: XR chest 2V Exam Date/Time: 08/18/2023 12:35 CDT HISTORY: ASTHMA EXERBATION Comparison: None. RESULT: Lines, tubes, and devices: None. Lungs and pleura: Clear. Cardiomediastinal silhouette: Normal. Other: No acute osseous or upper abdominal finding. IMPRESSION: No acute cardiopulmonary process. Reviewed, dictated and finalized at location K.
== END ==
PROVIDERS: PCP Emergency Medicine; Visit Provider Emergency Medicine
DX: J45.901 Unspecified asthma with (acute) exacerbation (principal)
CPT/HCPCS: 71046

== ENCOUNTER 2023-09-17 10:52 | Outpatient (CLI) | payer OTHER, SELFPAY ==
--- NOTE | ~2023-09-17 | US_ITS ---
Limited Abdominal Sonogram: Real-time sonographic imaging of the right upper quadrant was performed. Clinical History: Hepatitis C Findings: The liver appears normal with no evidence of mass lesion or bile duct dilatation. Main por lorna vein demonstrates normal direction of flow. The gallbladder is well distended, and appears normal with no evidence of gallstone or wall thickening. The common bile duct measures 3 mm. The visualize d pancreas, aorta, and IVC are unremarkable. Impression: No significant abnormality seen. Reviewed, dictated and finalized at location . Impression: No significant abnormality seen.
[2023-09-17 12:30] LABS: Hematocrit 46.7 % (42.0-52.0); Hemoglobin 15.5 g/dL (14.0-18.0); Mean Corpuscular HGB Conc 33.2 g/dl (32-36); Mean Corpuscular Hemoglobin 29.9 pg (26-34); Mean Corpuscular Volume 90.2 fl (80-100); Mean Platelet Volume 10.7 fl (7.4-10.4); Platelet Count Result 156 k/mm3 (150-375); Red Blood Count 5.18 M/mm3 (4.6-6.20); Red Cell Distribution Width 12.4 % (11.5-14.5); White Blood Count 4.9 K/mm3 (4.5-10.0)
[2023-09-17 12:44] LABS: INR 1.1; Prothrombin Time 15.1 Seconds (11.1-14.7)
[2023-09-17 13:17] LABS: Hepatitis B Surface Antigen Negative (Negative)
[2023-09-17 13:23] LABS: HAV RESULT Negative (Negative); Hepatitis B Core IgM Result Negative (Negative)
[2023-09-17 14:01] LABS: Hepatitis C Virus Antibody Reactive (Negative)
[2023-09-23 17:42] LABS: HCV Genotype, LiPA 3
[2023-10-01 00:48] LABS: ALT 122 U/L (9-46); Alpha-2-Macroglobulin 212 mg/dL (106-279); Apolipoprotein A1 156 mg/dL (94-176); Fibrosis Score 0.37; Fibrosis Stage F1-F2; GGT 26 U/L (3-90); Haptoglobin 43 mg/dL (43-212); Necroinflammat Act Grade A3; Total Bilirubin 1.1 mg/dL (0.2-1.2)
== END 2023-09-17 10:53 | disposition home or self-care (01) ==
PROVIDERS: PCP Emergency Medicine; Visit Provider Internal Medicine Gastroenterology
DX: B19.20 Unspecified viral hepatitis C without hepatic coma (principal)
CPT/HCPCS: 36415; 76705; 80074; 81596; 85027; 85610; 85730; 87522; 87902

== ENCOUNTER 2024-01-31 08:20 | Emergency (ER) | payer OTHER, SELFPAY ==
--- NOTE | ~2024-01-31 | XR_ITS ---
XR hand LT min 3V Ordering provider: Neno Kuhn III, DO History: . LACERATION TO 3RD PIP JOINT . Comparison: None. FINDINGS: BONES: No acute fracture or dislocation. JOINT SPACES: Well maintained. SOFT TISSUES: Soft tissue swelling over the proximal interphalangeal joint of the middle finger. IMPRESSION: No acute osseous abnormality left hand. Reviewed, dictated and finalized at location A.
[2024-01-31 08:27] VITALS: BP 136/94; PULSE 100; RESP 18; TEMP 36.7; O2SAT 99
--- NOTE | 2024-01-31 09:12 | ED.WOUNDLAC ---
HPI - Wound/Laceration General Chief Complaint: Wound/Laceration Stated Complaint: lac to L middle finder Time Seen by Provider: 01/31/24 08:40 History of Present Illness HPI narrative: Pt cut finger with tankage grinder. Pt unsure of last tetanus. Pt says it hurts to move it. Pt denies other injury. Related Data Allergies Allergy/AdvReac Type Severity Reaction Status Date / Time No Known Allergies Allergy Verified 01/31/24 08:21 Review of Systems Review of Systems: All systems reviewed & are unremarkable except as noted in HPI and below PMFSH Past Medical History Medical History Allergic rhinitis Anxiety H/O intravenous drug use in remission Hepatitis C Surgical History Surgical History History of appendectomy Family History Family History Mother No pertinent past medical history Social History Social History (Updated 04/14/23 @ 10:06 by Denise Hager MA) Years smoked: 14 Smoking status: Current every day smoker Tobacco type: cigarettes Alcohol intake: never Lack of Transportation: No Lack of Food: Never True Current Housing: I Have Housing Concerned About Future Housing: No Difficulty Paying Gas/Electric Bills: No Difficulty Paying for Meds: No Currently Unemployed: YES Education: High School Diploma/GED Difficulty w/ Childcare or Family Care: No Gender identity (if verbalized by the patient): Male Exam Const: General: healthy appearing and no acute distress Nutritional Appearance: well nourished Orientation/consciousness: patient oriented x3 Limitations: no limitations Resp: Effort & Inspection: normal respiratory effort Cardio: Rate: regular rate Rhythm: regular rhythm GI: GI Palp: Yes Soft to palpation and No Tenderness to palpation present (GI) Auscultation: normal bowel sounds Skin: Wounds: wounds noted Other: 1.5 cm laceration left 3rd PIP joint dorsum. Neuro: General: patient oriented x3, moves all extremities and no focal motor deficits Speech: normal speech Extrem: General: no clubbing, cyanosis or edema Other: able to extend and flex left finger at PIP Psych: Mental Status: mental status grossly normal Affect: normal affect Attitude: cooperative Course Vital Signs Vital signs: Vital Signs Temperature 98.0 F 01/31/24 08:27 Pulse Rate 100 01/31/24 08:27 Respiratory Rate 18 01/31/24 08:27 Blood Pressure 136/94 H 01/31/24 08:27 Pulse Oximetry 99 01/31/24 08:27 Temperature 98.0 F 01/31/24 08:27 Pulse Rate 100 01/31/24 08:27 Respiratory Rate 18 01/31/24 08:27 Blood Pressure 136/94 H 01/31/24 08:27 Pulse Oximetry 99 01/31/24 08:27 Procedures Laceration Laceration 1: Site: hand Side (If applicable): left Size (cm): 1.5 Description: linear Depth: simple, single layer Local Anesthetic: lidocaine 1% Amount of anesthesia used (mL): 5 ====== Skin Level ====== Skin layer closed with: nylon Size (cm): 4-0 Number of sutures: 3 Technique: simple, interrupted ====== Subcutaneous Layer ====== ====== Muscle Layer ====== ====== Tendon Layer ====== Discharge Plan Discharge Clinical Impression: Laceration Patient Disposition: Home, Self-Care Condition: Improved Instructions: Antibiotic Form, Laceration (ED) Additional Instructions: suture removal 10 days Prescriptions: No Action ibuprofen 600 mg tablet 600 mg PO TID PRN (Reason: pain) Qty: 20 0RF hydrocodone-acetaminophen 5-325 mg tablet 1 tablet PO Q6H PRN (Reason: pain) Qty: 14 0RF hydrocodone-acetaminophen 5-325 mg tablet 1 tablet PO Q6H PRN (Reason: pain) Qty: 20 0RF ibuprofen [IBU] 600 mg tablet 600 mg PO Q6H PRN (Reason: krishna
[2024-01-31] MEDS: LIDOCAINE HCL 1% LOCAL INJ 10 ML VIAL INFILTRATE (09:20)
[2024-01-31] MEDS: TETANUS,DIPHTHERIA,AC PERTUSSIS ADULT (0.5 ML) BOOSTRIX IM (09:31)
== END 2024-01-31 09:51 | disposition home or self-care (01) ==
PROVIDERS: Emergency Provider Emergency Medicine; PCP Emergency Medicine
DX: S61.213A Laceration without foreign body of left middle finger without damage to nail, initial encounter (principal); Z23 Encounter for immunization; F17.210 Nicotine dependence, cigarettes, uncomplicated; Z86.19 Personal history of other infectious and parasitic diseases; W29.8XXA Contact with other powered hand tools and household machinery, initial encounter
CPT/HCPCS: 12001; 73130; 90471; 90715; 99283

== ENCOUNTER 2024-02-27 12:38 | Emergency (ER) | payer OTHER, SELFPAY ==
[2024-02-27 12:44] VITALS: BP 132/88; PULSE 103; RESP 16; TEMP 36.6; O2SAT 100
--- NOTE | 2024-02-27 13:21 | ED.GENADULT ---
HPI - General Adult General Chief complaint: Extremity Injury, Upper Stated complaint: Lac. and swelling to L. 3rd finger Time Seen by Provider: 02/27/24 12:41 History of Present Illness HPI narrative: Patient is a 33-year-old male who presents ER with possible infection to his left 3rd digit. He had a laceration 1 month ago that was repaired. He removed the sutures. 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 He reports he continues to break okay been. It has been swollen since the 1st injury. Over the last 4 days he has developed some redness in the area that he continues to have full range of motion. He has been having some pus drained from it this morning. No fevers or chills or sweats. Related Data Allergies Allergy/AdvReac Type Severity Reaction Status Date / Time No Known Allergies Allergy Verified 02/27/24 12:48 Review of Systems Constitutional: Constitutional: Reports no additional constitutional complaints Musculoskeletal: Musculoskeletal: Reports no additional musculoskeletal complaints Integumentary/Breasts: Skin/Breast: Reports erythema, Denies rash and Reports skin ulcer Neurologic: Denies focal weakness and Denies numbness PMFSH Past Medical History Medical History Allergic rhinitis Anxiety H/O intravenous drug use in remission Hepatitis C Surgical History Surgical History History of appendectomy Family History Family History Mother No pertinent past medical history Social History Social History (Updated 04/14/23 @ 10:06 by Denise Hager MA) Years smoked: 14 Smoking status: Current every day smoker Tobacco type: cigarettes Alcohol intake: never Lack of Transportation: No Lack of Food: Never True Current Housing: I Have Housing Concerned About Future Housing: No Difficulty Paying Gas/Electric Bills: No Difficulty Paying for Meds: No Currently Unemployed: YES Education: High School Diploma/GED Difficulty w/ Childcare or Family Care: No Gender identity (if verbalized by the patient): Male Exam Narrative: GENERAL: Well-appearing, well-nourished, and in no acute distress. HEAD: Normocephalic, atraumatic. ENT: Mucous membranes moist. HEART: Regular rate and rhythm. Normal peripheral pulses. EXTREMITIES: He is left 3rd digit with swelling around the PIP. There is ulcerated healing wound in that area. Over the radial aspect of this dorsal wound there is scant pus. Slight erythema extending to the MCP and the PIP. No significant warmth. SKIN: Warm, dry, no rash. NEURO: No focal deficits. Alert and oriented x3. PSYCH: Normal mood and affect. Course Course Emergency Course: Wound culture sent. Will start on Bactrim DS. Will also give pain medication as he had to borrow a pain pill from a friend. No tenosynovitis. Discussed return precautions. Vital Signs Vital signs: Vital Signs Temperature 97.8 F 02/27/24 12:44 Pulse Rate 103 H 02/27/24 12:44 Respiratory Rate 16 02/27/24 12:44 Blood Pressure 132/88 02/27/24 12:44 Pulse Oximetry 100 02/27/24 12:44 Oxygen Delivery Room Air 02/27/24 12:44 Temperature 97.8 F 02/27/24 12:44 Pulse Rate 90 02/27/24 13:32 Respiratory Rate 16 02/27/24 13:32 Blood Pressure 122/86 02/27/24 13:32 Pulse Oximetry 100 02/27/24 13:32 Oxygen Delivery Room Air 02/27/24 12:44 Medical Decision Making Vital Signs Vital Signs: Vital Signs Temperature 97.8 F 02/27/24 12:44 Pulse Rate 103 H 02/27/24 12:44 Respiratory Rate 16 02/27/24 12:44 Blood Pressure 132/88 02/27/24 12:44 Pulse Oximetry 100 02/27/24 12:44 Oxygen Delivery Room Air 02/27/24 12:44 Temperature 97.8 F 02/27/24 12:44 Pulse Rate 90 02/27/24 13:32 Respiratory Rate 16 02/27/24 13:32 Blood Pressure 122/86 02/27/24 13:32 Pulse Oximetry 100 02/27/24 13:32 Oxygen Delivery Room Air 02/27/24 12:44 Discharge Plan Discharge Clinical Impression: Wound infection Patient Disposition: Home, Self-Care Condition: Stable Instructions: Wound Infection (DC) Additional Instructions: Return to the ER if you have fever over 101F, you cannot keep down food/water, you have worsening redness/pain, or you have other concerns. Prescriptions: New sulfamethoxazole-trimethoprim [Bactrim DS] 800-160 mg tablet 1 tablet PO Q12H Qty: 14 0RF hydrocodone-acetaminophen 5-325 mg tablet 1 tablet PO Q6H PRN (Reason: pain) Qty: 20 0RF No Action ibuprofen 600 mg tablet 600 mg PO TID PRN (Reason: pain) Qty: 20 0RF hydrocodone-acetaminophen 5-325 mg tablet 1 tablet PO Q6H PRN (Reason: pain) Qty: 14 0RF hydrocodone-acetaminophen 5-325 mg tablet 1 tablet PO Q6H PRN (Reason: pain) Qty: 20 0RF ibuprofen [IBU] 600 mg tablet 600 mg PO Q6H PRN (Reason: pain) Qty: 20 0RF Follow-up/Referrals: Peña Luna MD [Primary Care Provider] - 1 Week
[2024-02-27 13:32] VITALS: BP 122/86; PULSE 90; RESP 16; O2SAT 100
== END 2024-02-27 13:34 | disposition home or self-care (01) ==
PROVIDERS: Emergency Provider Emergency Medicine; PCP Emergency Medicine
DX: L08.9 Local infection of the skin and subcutaneous tissue, unspecified (principal); F17.210 Nicotine dependence, cigarettes, uncomplicated
CPT/HCPCS: 87070; 87181; 87205; 99283

== ENCOUNTER 2025-01-18 16:16 | Emergency (ER) | payer OTHER, SELFPAY ==
--- NOTE | ~2025-01-18 | XR_ITS ---
EXAMINATION: XR finger 3rd RT min 2V, 01/18/2025 16:30 CDT HISTORY: swelling, infection rt 3rd finger. COMPARISON: No comparisons available. Findings: No acute fracture or malalignment. No significant degenerative changes. Soft tissues unremarkable. Impression: No acute fracture or malalignment. Reviewed, dictated and finalized at location A. Impression: No acute fracture or malalignment.
[2025-01-18 16:22] VITALS: BP 125/73; PULSE 85; RESP 16; TEMP 37.2; O2SAT 98
--- NOTE | 2025-01-18 16:26 | ED_ITS ---
HPI - Skin/Abscess/Foreign Bdy General Chief complaint: Extremity Problem,Nontraumatic Stated complaint: Right Hand Finger Pain Time Seen by Provider: 01/18/25 16:20 Source: patient Mode of arrival: ambulatory Limitations: no limitations History of Present Illness HPI narrative: Patient is a 34-year-old male who presents with right middle finger pain. Patient reports it is been increasingly more swollen, painful over the last 2 days. Reports pus draining from it today. Patient chews on skin of fingers due to anxiety. Patient states he has been cleaning out an old camper and thinks he got dirt or something in wounds. Related Data Allergies Allergy/AdvReac Type Severity Reaction Status Date / Time No Known Allergies Allergy Verified 01/18/25 16:17 Review of Systems 2 Review of Systems: All systems reviewed & are unremarkable except as noted in HPI and below Constitutional: Constitutional: Denies body ache(s), Denies chills, Denies fatigue, Denies fever(s), Denies headache(s), Denies malaise and Denies weakness Eyes: Eyes: Denies blurry vision, Denies irritation and Denies loss of vision ENT: Denies otalgia, Denies headache(s), Denies nasal discharge, Denies sinus pain and Denies sore throat Cardiovascular: Cardiovascular: Denies chest pain, Denies irregular heart rhythm and Denies dyspnea Respiratory: Respiratory: Denies dyspnea Gastrointestinal: Gastrointestinal: Denies abdominal pain, Denies melena, Denies hematochezia, Denies diarrhea, Denies nausea and Denies vomiting Musculoskeletal: Musculoskeletal: Denies back pain, Denies myalgias and Denies arthralgias Integumentary/Breasts: Skin/Breast: Denies pruritus, Denies rash, Reports skin swelling and Reports wounds Neurologic: Denies headache(s), Denies loss of vision and Denies weakness Psychiatric: Psychiatric: Reports no additional psychiatric complaints Endocrine: Endocrine: Denies fatigue PMFSH Past Medical History Medical History Anxiety H/O intravenous drug use in remission Allergic rhinitis Hepatitis C Surgical History Surgical History History of appendectomy Family History Family History Mother No pertinent past medical history Social History Social History Years smoked: 14 Smoking status: Current every day smoker Tobacco type: cigarettes Alcohol intake: never Lack of Transportation: No Lack of Food: Never True Current Housing: I Have Housing Concerned About Future Housing: No Difficulty Paying Gas/Electric Bills: No Difficulty Paying for Meds: No Currently Unemployed: YES Education: High School Diploma/GED Difficulty w/ Childcare or Family Care: No Gender identity (if verbalized by the patient): Male Comments At time of signature, agree with nursing past medical, surgical, social and family history. There is no relevant family history pertinent to the presenting complaint. Exam 2 Const: General: cooperative, healthy appearing, comfortable, no acute distress and well nourished Nutritional Appearance: well nourished O rientation/consciousness: patient oriented x3 Limitations: no limitations HENMT: Head: normal to inspection, normocephalic and atraumatic Ears: h earing grossly normal bilaterally and external ears normal Face/Nose/Sinus: N ormal external nose present, normal facial exam and face symmetric Face and sinus: normal facial exam and face symmetric Mouth: Yes lip normal Eyes: General: appearance normal, both eyes and all related structures A lignment and Position: alignment normal and position normal Periorbital: p eriorbital findings normal Eyelids: eyelids normal Pupils: Equal, round and reactive pupils present EOM: EOMs intact bilaterally Neck: Neck: normal visual inspection, full ROM and supple Chest: Chest palpation & inspection: normal inspection of the chest Resp: Effort & Inspection: normal respiratory effort and able to speak in complete sentences Auscultation: clear to auscultation bilaterally Cardio: Rate: regular rate Rhythm: regular rhythm Heart sounds: S1 normal heart sound present and S2 normal heart sound present GI: Inspection: normal to inspection Skin: General skin exam: normal color and no rashes or lesions noted Neuro: General: patient oriented x3 and moves all extremities Cranial nerves: Yes Equal, round and reactive pupils present Speech: normal speech Gait exam (Neuro): Normal gait present Extrem: General: normal to inspection, full ROM and no edema Right upper extremity: Extremity exam: right hand normal capillary refill, neuromotor exam normal, neurosensory exam normal, tenderness of the 3rd digit at the DIP joint, normal ROM of fingers, warmth of the 3rd digit at the DIP joint and swelling of the 3rd digit at the DIP joint Hand/finger images: 1. Area of infection visualized in picture Other: Psych: Appearance: grossly normal and well kempt Mental Status: mental status grossly normal Speech and movement: Normal speech and movement present Affect: normal affect Attitude: cooperative Thought process: Normal thought process present Course Course Emergency Course: Patient is aware of diagnosis, understands and agrees to treatment plan. Anticipatory guidance given. Patient agrees to follow-up as directed and is aware of reasons to seek care at the emergency department. Portions of this record may have been created with voice recognition software Level of Care: Express Care Visit Vital Signs Vital signs: Vital Signs Temperature 37.2 C 01/18/25 16:22 Pulse Rate 85 01/18/25 16:22 Respiratory Rate 16 01/18/25 16:22 Blood Pressure 125/73 01/18/25 16:22 Pulse Oximetry 98 01/18/25 16:22 Oxygen Delivery Room Air 01/18/25 16:22 Temperature 37.2 C 01/18/25 16:22 Pulse Rate 85 01/18/25 16:22 Respiratory Rate 16 01/18/25 16:22 Blood Pressure 125/73 01/18/25 16:22 Pulse Oximetry 98 01/18/25 16:22 Oxygen Delivery Room Air 01/18/25 16:22 Reviewed MDM - Skin/Abscess/Foreign Bdy MDM Narrative Medical decision making narrative: X-ray shows no signs of osteomyelitis. Will cover with antibiotics and follow- up with Abernathie Pt well hydrated appearing, in no respiratory distress, hemodynamically stable. Recommend supportive care. The patient is stable at time of discharge the clinical impression was discussed and the patient was given the opportunity to ask questions, which were addressed as completely as possible given the information available at present. Anticipatory guidance and return to care precautions were discussed and the importance of primary care follow-up was stressed and encouraged. The patient voiced understanding of the plan, indications to return, and the need for follow-up. Exam findings show no acute concerns or changes Patient is appropriate for outpatient treatment and follow-up. Differential Diagnosis Differential diagnosis: Likely abscess of skin or subcutaneous tissue, cellulitis, insect bites and other (Osteomyelitis) Medical Records Attestation: I reviewed the patient's medical records. Imaging Data Radiologist's impression: EXAMINATION: XR finger 3rd RT min 2V, 01/18/2025 16:30 CDT HISTORY: swelling, infection rt 3rd finger. COMPARISON: No comparisons available. Findings: No acute fracture or malalignment. No significant degenerative changes. Soft tissues unremarkable. Impression: No acute fracture or malalignment. Discharge Plan Discharge Clinical Impression: Cellulitis Qualifiers: Site of cellulitis: extremity Site of cellulitis of extremity: finger L aterality: right Qualified Code(s): L03.011 - Cellulitis of right finger Patient Disposition: Home Condition: Stable Instructions: Cellulitis (ED) Additional Instructions: Please follow up with your Primary Care Doctor within 48-72 hours - call for an appointment. Rest and elevate affected area; apply moist heat 3-4 times daily for 10-15 minutes. Clean with soap and water only; Avoid using alcohol and peroxide. Elevate the affected area if possible Please take Antibiotics as directed. For pain, you may take: Tylenol 650-1000mg by mouth every 4-6 hours. Do not exceed 4000mg in 24 hours. Advil (Ibuprofen) 600 mg by mouth every 6 hours. Do not exceed 2400mg in 24 hours. 8 AM: Tylenol 11 AM: Ibuprofen 2 PM: Tylenol 5 PM: Ibuprofen 8 PM: Tylenol 11 PM: Ibuprofen 2 AM: Tylenol 5 AM: Ibuprofen If you experience any worsening redness, swelling, streaking (red lines), fever or chills please go to the ER Patient Language: Chilean Prescriptions: New clindamycin HCl 300 mg capsule 300 mg PO Q8H 10 Days Qty: 30 0RF sulfamethoxazole-trimethoprim 800-160 mg tablet 1 tablet PO Q12H 5 Days Qty: 10 0RF Follow-up/Referrals: Lorena Jones MD [Physician, Plastic Surgery] - 3 Days Referral Note: finger infection, reported history of needing washout for infection Peña Luna MD [Primary Care Provider, Family Practice] Stand Alone Forms: Work/School Release IP Time of Disposition: 17:07
== END 2025-01-18 17:15 | disposition home or self-care (01) ==
PROVIDERS: Emergency Provider Nurse Practitioner Family; PCP Emergency Medicine
DX: L03.011 Cellulitis of right finger (principal); F17.210 Nicotine dependence, cigarettes, uncomplicated
CPT/HCPCS: 73140; 99213; G0463

== ENCOUNTER 2025-01-22 09:59 | Emergency (ER) | payer OTHER, SELFPAY ==
--- OUTSIDE RECORDS SUMMARY | 2015-12-30 19:00 | XMS_ITS | Continuity of Care Document ---
Author Organization [email or web address] Address [address] [place] [address] Phone Care Team Providers Care Auger Machine Offbearer Name Role Phone Ryan Carroll MD Unavailable Unavailable Advance Directives Directive Yes / No Effective Date File Name No Information Encounters Encounter Description Practice Location Reason(s) For Visit Diagnoses Date Provider Providers Copied on Encounter [email or web address], [address], [place], [place], [id number], tel:[phone] [facility] No Information Glen Davis. [address] [place] [address], [address], [place], [place], [id number], . tel:[phone] Referring Provider: Ryan Carroll, [address] [place] [address], [place], [address]. tel:[phone] Family History Family Member Type Diagnosis Age At Onset No Information Payers Payer name Insurance type Covered constitution party ID Authoriza tierin(s) [employer] CI [id number] Social History Type Description Quantity Date Captured Comments Sex Male Smoking Status No Information Chief Complaint And Reason For Visit No Information Reason For Referral Reason For Referral No Information History Of Present Illness Encounter Date Complaint History Of Prese nt Illness No Information Functional Status Date Functional Assessmen t No Information Instructions Date Instruction Additional Infor mation No Information Assessments Type Assessment Date No Information Patient Care Teams Name Effective Dates (start - stop) Status Members No Information
--- OUTSIDE RECORDS SUMMARY | 2015-12-30 19:00 | XMS_ITS | Continuity of Care Document ---
Author Organization [facility] Address [address] [place] [address] Phone Care Team Providers Care Agricultural Technical Officer Name Role Phone Ryan Carroll MD Unavailable Unavailable Advance Directives Directive Yes / No Effective Date File Name No Information Encounters Encounter Description Practice Location Reason(s) For Visit Diagnoses Date Provider Providers Copied on Encounter [facility], [address], [place], [place], [id number], tel:[phone] [facility] No Information Glen Davis. [address] [place] [address], [address], [place], [place], [id number], . tel:[phone] Referring Provider: Ryan Carroll, [address] [place] [address], [place], [address]. tel:[phone] Family History Family Member Type Diagnosis Age At Onset No Information Payers Payer name Insurance type Covered alliance party ID Authoriza tierin(s) [employer] CI [id number] Social History Type Description Quantity Date Captured [...]
[2025-01-22 10:06] VITALS: BP 132/74; PULSE 86; RESP 18; TEMP 36.7; O2SAT 96
--- OUTSIDE RECORDS SUMMARY | 2025-01-22 11:02 | XMS_ITS | Encounter Summary ---
Author Organization [facility] Address [facility] [place] [address] Care Team Providers Care Program Admin Name Role Phone None, Provider Primary Care Provider Unavaila ble Encounter Details Date Type Department Care Team (Late st Contact Info) Description 07/17/2017 Abstract [facility] CONVERSION [address] [place] [address] , Generic Conversion, Social History Tobacco Use Types Packs/Day Years Used Date Smoking Tobacco: Never Assessed Sex and Gender Information Value Date Recorded Sex Assigned at Not on file Legal Sex Male 5:27 PM CDT Gender Identity Not on file Sexual Orientation Not on file documented as of this encounter Plan of Treatment Not on file documented as of this encounter Visit Diagnoses Not on filedocumented in this encounter Care Teams Program Admin Relationship Specialty Start Date End Date None, ProviderMD PCP - General 03/12/21 documented as of this encounter
--- OUTSIDE RECORDS SUMMARY | 2025-01-22 11:02 | XMS_ITS | Clinical Summary ---
Author Organization [facility] Address [address] [place] [address] Care Team Providers Care Building Contractor Name Role Phone Unavailable Primary Care Provider Unavailabl e Source Comments [facility],non-owned Affiliates and Associated Physician Practices is amultiple site organization consisting of ambulatory clinics and hospital sitesin [place], [place], [place] and [place]. This disclosure is being madepursuant to the Care Everywhere program and may not contain all information available regarding this patient. Last updated 18.[facility] Allergies No known active allergies Medications * Be aware that medications may not be up to date on this document. Alwaysverify current medications with the patient. omeprazole (PRILOSEC) 20 MG capsule Take 1 Cap by mouth daily before breakfast 30 Cap 0 6 Active Active Problems Problem Noted Date Diagnosed Date Asthma 05/22/2009 Allergic rhinitis 05/22/2009 Social History Tobacco Use Types Packs/Day Years Used Date Smoking Tobacco: Every Day Tobacco Cessation:Ready to Q uit: No Alcohol Use Standard Drinks/Week Comments No 0 (1 standard drink = 0.6 oz pur e alcohol) Sex and Gender Information Value Date Recorded Sex Assigned at Not on file Legal Sex Male 5:54 AM RELATIONS MANAGER Gender Identity Not on file Sexual Orientation Not on file Last Filed Vital Signs Vital Sign Reading Time Taken Comments Blood Pressure 128/78 01/07/2016 1:20 PM CDT Pulse 86 01/07/2016 1:20 PM CDT Temperature 37.2 C (98.9 F) 01/07/2016 1:20 PM CDT Respiratory Rate 20 01/07/2016 1:20 PM CDT Oxygen Saturation 99% 01/07/2016 1:20 PM CDT Inhaled Oxygen Concentration - - Weight 70.3 kg (155 lb) 01/07/2016 9:03 AM CDT Height 185.4 cm (6' 1) 01/07/2016 9:03 AM CDT Body Mass Index 20.45 01/07/2016 9:03 AM CDT Plan of Treatment Health Maintenance Due Date Last Done Comments HIV SCREENING 2005 HEPATITIS C SCREENING 07/20/2008 DTAP/TDAP/TD VACCINES (1 - Tdap) 2009 HEPATITIS B VACCINE (1 of 3 - 19+ 3-dose series) 2009 PNEUMOCOCCAL VACCINE (1 of 2 - PCV) 2009 HPV VACCINE (1 - 3-dose SCDM series) 2017 DEPRESSION SCREENING 05/03/2024 COVID-19 VACCINE (1 - 2023-2 5 season) 2025 INFLUENZA VACCINE (#1) 2025 ZOSTER VACCINE (1 of 2) 2040 HIB VACCINE Aged Out No longer eligi ble based on patient's age to complete this topic MENINGOCOCCAL (Group B) VACC INE SHARED DECISION-MAKING Aged Out No longer eligibl e based on patient's age to complete this topic MENINGOCOCCAL GROUPS A/C/Y/W VACCINE Aged Out No longer eligible b ased on patient's age to complete this topic Insurance [employer] MEDICAID - OUT OF STATE [employer]
--- OUTSIDE RECORDS SUMMARY | 2025-01-22 11:02 | XMS_ITS | Clinical Summary ---
Author Organization [facility] Address [facility] [place] [address] Care Team Providers Care Fire Prevention Captain Name Role Phone None, Provider MD Primary Care Provider Unavaila ble Allergies No known active allergies Medications HYDROcodone-acet aminophen 5-325 MG tabletIndication s:Acute Pain < 7 Day Supply Take 1 tablet by mouth every 8 (eight) hours as needed for Pain. Indications : Acute Pain < 7 Day Supply 15 tablet 03/13/2021 Active Active Problems Problem Noted Date Diagnosed Date Pneumothorax 03/12/2021 Social History Tobacco Use Types Packs/Day Years Used Date Smoking Tobacco: Every Day Smokeless Tobacco: Never Alcohol Use Standard Drinks/Week Comments Yes 0 (1 standard drink = 0.6 oz pur e alcohol) often Sex and Gender Information Value Date Recorded Sex Assigned at Not on file Legal Sex Male 5:27 PM CDT Gender Identity Not on file Sexual Orientation Not on file Last Filed Vital Signs Vital Sign Reading Time Taken Comments Blood Pressure 124/86 03/13/2021 11:00 AM TOOTH POLISHER Pulse 74 03/13/2021 11:00 AM TOOTH POLISHER Temperature 36.6 C (97.8 F) 03/13/2021 8:36 AM TOOTH POLISHER Respiratory Rate 18 03/13/2021 11:00 AM TOOTH POLISHER Oxygen Saturation 97% 03/13/2021 11:00 AM TOOTH POLISHER Inhaled Oxygen Concentration - - Weight 78.3 kg (172 lb 9.9 oz) 03/12/2021 6:16 P M TOOTH POLISHER Height 182.9 cm (6') 03/12/2021 6:16 PM TOOTH POLISHER Body Mass Index 23.41 03/12/2021 6:16 PM TOOTH POLISHER Plan of Treatment Health Maintenance Due Date Last Done Comments Annual Physical 1993 Hepatitis B Vaccines (1 of 3 - 19+ 3-dose series) 2009 Pneumococcal Vaccine: Pediatrics (0 to 5 Years) and At-Risk Patients (6 to 49 Years) (1 of 2 - PCV) 2009 HPV Vaccines (1 - 3-dose SCD M series) 2017 COVID-19 Vaccine ( - 2023-2 5 season) 2025 DTaP, Tdap and Td Vaccines ( 3 - Td or Tdap) 04/13/2030 04/13/2020, 02/26/2010 Hepatitis C Completed 03/13/2021 Meningococcal B Vaccine Aged Out No l onger eligible based on patient's age to complete this topic Meningococcal Vaccine Aged Out No matteo alejandra eligible based on patient's age to complete this topic RSV Immunizations Under 20 Months Aged Out No longer eligible b ased on patient's age to complete this topic Procedures Procedure Name Priority Date/Time Associated Diagnosis Comments HEPATITIS PANEL,ACUTE STAT 03/13/2021 12:01 AM TOOTH POLISHER from Last 3 Months or Most Recently Relevant to Health Maintenance Results * (ABNORMAL) HEPATITIS PANEL,ACUTE (03/13/2021 12:01 AM TOOTH POLISHER) HEPATITIS B SURFACE AG NON-REACTI VE NON-REACTI VE 03/13/2021 2:38 AM TOOTH POLISHER [facility] HEP B CORE IGM NON-REACTI VE NON-REACTI VE 03/13/2021 2:59 AM TOOTH POLISHER [facility] HAV IGM NON-REACTI VE NON-REACTI VE 03/13/2021 3:03 AM TOOTH POLISHER [facility] HEPATITIS C AB REACTIVE(A ) NON-REACTI VE 03/13/2021 3:06 AM TOOTH POLISHER [facility] Comment: NOTE: A POSITIVE RESULT WILL BE CONFIRMED BY THE HEP C RNA, QUANT, PCR TEST. 03/13/2021 12:0 1 AM TOOTH POLISHER Michael Banuelos DO LABORATORY Final Result [facility] [address] [place] [address], [place] [phone] from Last 3 Months or Most Recently Relevant to Health Maintenance [place] [address] [address] C/O PROVIDER SERVICES EVELYN MCKAY [id number] Advance Directives * Full Code (Latest Code Status on File) Date Activated Date Inactivated Comments 03/12/2021 11:08 PM 03/13/2021 2:22 PM Care Teams Fire Prevention Captain Relationship Specialty Start Date End Date None, ProviderMD PCP - General 03/12/21
[2025-01-22 11:10] VITALS: BP 130/82; PULSE 66; RESP 17; TEMP 36.7; O2SAT 99
--- NOTE | 2025-01-22 11:41 | ED_ITS ---
HPI - Extremity Injury (Upper) General Chief Complaint: Extremity Injury, Upper Stated Complaint: right middle finger swelling Time Seen by Provider: 01/22/25 11:09 History of Present Illness HPI narrative: Patient is a 34-year-old male who presents ER with swelling to the right middle finger. He injured it a few days ago and was started on clindamycin and Bactrim. No fevers chills or sweats. There is a swollen area that is fluctuant that is preventing him from bending his finger. No numbness or tingling. Tetanus is up-to-date in last 2 years. Related Data Allergies Allergy/AdvReac Type Severity Reaction Status Date / Time No Known Allergies Allergy Verified 01/22/25 10:11 Review of Systems Constitutional: Constitutional: Reports no additional constitutional complaints Musculoskeletal: Musculoskeletal: Reports no additional musculoskeletal complaints Integumentary/Breasts: Skin/Breast: Reports system reviewed and no additional complaints, except as docu PMFSH Past Medical History Medical History Anxiety H/O intravenous drug use in remission Allergic rhinitis Hepatitis C Surgical History Surgical History History of appendectomy Family History Family History Mother No pertinent past medical history Social History Social History Years smoked: 14 Smoking status: Current every day smoker Tobacco type: cigarettes Alcohol intake: never Lack of Transportation: No Lack of Food: Never True Current Housing: I Have Housing Concerned About Future Housing: No Difficulty Paying Gas/Electric Bills: No Difficulty Paying for Meds: No Currently Unemployed: YES Education: High School Diploma/GED Difficulty w/ Childcare or Family Care: No Gender identity (if verbalized by the patient): Male Exam Narrative: GENERAL: Well-appearing, well-nourished, and in no acute distress. HEAD: Normocephalic, atraumatic. CHEST: Clear to auscultation. No respiratory distress. HEART: Regular rate and rhythm. Normal peripheral pulses. EXTREMITIES: Normal range of motion. No edema. Area of inflammation ulnar aspect of the right middle digit at the middle phalanx without significant fluctuance. Area of scabbing also noted. SKIN: Warm, dry, no rash. NEURO: Alert and oriented x3. Course Course Emergency Course: Digital block performed, unable to get significant purulent fluid out but there was an area that drained cloudy serous fluid at an area of scabbing. Continue clindamycin and Bactrim. Will give hand follow-up. Vital Signs Vital signs: Vital Signs Temperature 98.0 F 01/22/25 10:06 Pulse Rate 86 01/22/25 10:06 Respiratory Rate 18 01/22/25 10:06 Blood Pressure 132/74 01/22/25 10:06 Pulse Oximetry 96 01/22/25 10:06 Oxygen Delivery Room Air 01/22/25 10:06 Temperature 98.1 F 01/22/25 11:10 Pulse Rate 66 01/22/25 11:10 Respiratory Rate 17 01/22/25 11:10 Blood Pressure 130/82 01/22/25 11:10 Pulse Oximetry 99 01/22/25 11:10 Oxygen Delivery Room Air 01/22/25 11:10 Procedures Abscess I/D Finger: Side (if applicable): right Local Anesthetic: lidocaine 1% and with epi Amount of anesthesia used (mL): 1 Technique: needle aspiration Irrigation: No Packing used?: none I&D Results: Other (Cloudy serous fluid) Discharge Plan Discharge Clinical Impression: Finger infection Patient Disposition: Home Condition: Stable Additional Instructions: Follow-up with hand surgery if your pain or swelling is worsening. Apply warm compresses to your finger to promote drainage of any retained fluid. Patient Language: Mongolian Prescriptions: No Action clindamycin HCl 300 mg capsule 300 mg PO Q8H 10 Days Qty: 30 0RF sulfamethoxazole-trimethoprim 800-160 mg tablet 1 tablet PO Q12H 5 Days Qty: 10 0RF Follow-up/Referrals: Lorena Jones MD [Physician, Plastic Surgery] - 1 Week UNKNOWN,DOCTOR [Primary Care Provider]
--- OUTSIDE RECORDS SUMMARY | 2025-01-22 12:42 | XMS_ITS | Clinical Summary ---
Author Organization [facility] Address [facility] [place] [address] Care Team Providers Care Arm Rest Builder Name Role Phone None, Provider MD Primary [...] Comments Blood Pressure 124/86 03/13/2021 11:00 AM CHILD PROTECTIVE SERVICES SPECIALIST Pulse 74 03/13/2021 11:00 AM CHILD PROTECTIVE SERVICES SPECIALIST Temperature 36.6 C (97.8 F) 03/13/2021 8:36 AM CHILD PROTECTIVE SERVICES SPECIALIST Respiratory Rate 18 03/13/2021 11:00 AM CHILD PROTECTIVE SERVICES SPECIALIST Oxygen Saturation 97% 03/13/2021 11:00 AM CHILD PROTECTIVE SERVICES SPECIALIST Inhaled Oxygen Concentration - - Weight 78.3 kg (172 lb 9.9 oz) 03/12/2021 6:16 P M CHILD PROTECTIVE SERVICES SPECIALIST Height 182.9 cm (6') 03/12/2021 6:16 PM CHILD PROTECTIVE SERVICES SPECIALIST Body Mass Index 23.41 03/12/2021 6:16 PM CHILD PROTECTIVE SERVICES SPECIALIST Plan of Treatment Health Maintenance Due Date [...] Comments HEPATITIS PANEL,ACUTE STAT 03/13/2021 12:01 AM CHILD PROTECTIVE SERVICES SPECIALIST from Last 3 Months or Most Recently Relevant to Health Maintenance Results * (ABNORMAL) HEPATITIS PANEL,ACUTE (03/13/2021 12:01 AM CHILD PROTECTIVE SERVICES SPECIALIST) HEPATITIS B SURFACE AG NON-REACTI VE NON-REACTI VE 03/13/2021 2:38 AM CHILD PROTECTIVE SERVICES SPECIALIST [facility] HEP B CORE IGM NON-REACTI VE NON-REACTI VE 03/13/2021 2:59 AM CHILD PROTECTIVE SERVICES SPECIALIST [facility] HAV IGM NON-REACTI VE NON-REACTI VE 03/13/2021 3:03 AM CHILD PROTECTIVE SERVICES SPECIALIST [facility] HEPATITIS C AB REACTIVE(A ) NON-REACTI VE 03/13/2021 3:06 AM CHILD PROTECTIVE SERVICES SPECIALIST [facility] Comment: NOTE: A POSITIVE RESULT WILL BE CONFIRMED BY THE HEP C RNA, QUANT, PCR TEST. 03/13/2021 12:0 1 AM CHILD PROTECTIVE SERVICES SPECIALIST Michael Banuelos DO LABORATORY Final Result [facility] [address] [place] [address], [place] [phone] from Last 3 Months or Most Recently Relevant to Health Maintenance [place] [address] [address] C/O PROVIDER SERVICES EVELYN MCKAY [id number] Advance Directives * Full Code (Latest Code Status on File) Date Activated Date Inactivated Comments 03/12/2021 11:08 PM 03/13/2021 2:22 PM Care Teams Arm Rest Builder Relationship Specialty Start Date End Date None, ProviderMD PCP - General 03/12/21
--- OUTSIDE RECORDS SUMMARY | 2025-01-22 12:42 | XMS_ITS | Encounter Summary ---
Author Organization [facility] Address [facility] [place] [address] Care Team Providers Care Route Sales Driver Name Role Phone None, Provider Primary Care Provider Unavaila ble Encounter Details Date Type Department Care Team (Late st Contact Info) Description 07/17/2017 Abstract [facility] CONVERSION [address] [place] [address] , Generic Conversion, Social History Tobacco Use [...] on filedocumented in this encounter Care Teams Route Sales Driver Relationship Specialty Start Date End Date None, ProviderMD PCP - General 03/12/21 documented as of this encounter
--- OUTSIDE RECORDS SUMMARY | 2025-01-22 12:42 | XMS_ITS | Clinical Summary ---
Author Organization [facility] Address [address] [place] [address] Care Team Providers Care Macroeconomics Professor Name Role Phone Unavailable Primary Care Provider Unavailabl e Source Comments [facility],non-owned Affiliates and Associated Physician Practices is amultiple site organization consisting of ambulatory clinics and hospital sitesin [place], [place], [place] and [place]. This disclosure is being madepursuant to the Care Everywhere program and may not contain all information available regarding this patient. Last updated 18.[facility] Allergies No known active allergies Medications * [...] on file Legal Sex Male 5:54 AM STRAIGHTEDGE MAN Gender Identity Not on file Sexual Orientation [...] patient's age to complete this topic Insurance [employer] MEDICAID - OUT OF STATE [employer]
[2025-01-22 13:20] VITALS: BP 114/87; PULSE 60; RESP 18; O2SAT 100
== END 2025-01-22 13:22 | disposition home or self-care (01) ==
PROVIDERS: Emergency Provider Emergency Medicine
DX: L08.9 Local infection of the skin and subcutaneous tissue, unspecified (principal); F17.210 Nicotine dependence, cigarettes, uncomplicated; F41.9 Anxiety disorder, unspecified
CPT/HCPCS: 10160; 99282; J2004

== ENCOUNTER 2025-03-21 11:28 | Emergency (ER) | payer OTHER, SELFPAY ==
[2025-03-21 11:37] VITALS: BP 118/51; PULSE 76; RESP 17; TEMP 36.6; O2SAT 98
[2025-03-21 12:03] LABS: Add Urine Microscopic? NO; Appearance Urine Clear (Clear); Glucose Urine UA Negative (Negative); Leukocyte Esterase Ur Negative LEU/UL (Negative); Nitrate Urine Negative (Negative); Specific Grav Ur 1.027 (1.001-1.035)
--- NOTE | 2025-03-21 13:09 | ED_ITS ---
HPI - General Adult General Chief complaint: Urogenital-Male Stated complaint: UTI symptoms Time Seen by Provider: 03/21/25 12:36 History of Present Illness HPI narrative: 34-year-old male present to the emergency department for evaluation for tenderness to his perineum and pain with urination. Patient denies any high- risk sexual contact, patient states pain is persistent but is also present during urination. Patient denies any penile discharge. Patient does state he was riding his mountain bike a lot over the last few weeks and did have some tenderness after that. Related Data Allergies Allergy/AdvReac Type Severity Reaction Status Date / Time No Known Allergies Allergy Verified 01/22/25 10:11 Review of Systems Review of Systems: All systems reviewed & are unremarkable except as noted in HPI and below PMFSH Past Medical History Medical History Anxiety H/O intravenous drug use in remission Allergic rhinitis Hepatitis C Surgical History Surgical History History of appendectomy Family History Family History Mother No pertinent past medical history Social History Social History Years smoked: 14 Smoking status: Current every day smoker Tobacco type: cigarettes Alcohol intake: never Lack of Transportation: No Lack of Food: Never True Current Housing: I Have Housing Concerned About Future Housing: No Difficulty Paying Gas/Electric Bills: No Difficulty Paying for Meds: No Currently Unemployed: YES Education: High School Diploma/GED Difficulty w/ Childcare or Family Care: No Gender identity (if verbalized by the patient): Male Exam Narrative: APPEARANCE: Well appearing, no pain, no distress, well-nourished. HEAD: normocephalic, atraumatic. EYES: PERRLA/EOMI, conjunctivae clear. NOSE: Normal no drainage EARS:TMS clear with good light reflex. THROAT: Pharynx clear, no exudate. NECK: Supple. No adenopathy, no masses. RESPIRATORY: Airway patent, respirations nonlabored. Clear to auscultation bilaterally, no rales, rhonchi, wheezing. CARDIOVASCULAR: Regular rate and rhythm without murmurs rubs or gallops. ABDOMINAL: Soft, nontender, nondistended, normal bowel sounds MUSCULOSKELETAL: Moves all extremities. Strength/ROM intact, No edema, No calf tenderness. NEURO: Alert. Cranial nerves II through XII intact. Good gait. Good coordination SKIN: Warm, dry. Normal Color Course Vital Signs Vital signs: Vital Signs Temperature 98 F 03/21/25 11:37 Pulse Rate 76 03/21/25 11:37 Respiratory Rate 17 03/21/25 11:37 Blood Pressure 118/51 L 03/21/25 11:37 Pulse Oximetry 98 03/21/25 11:37 Oxygen Delivery Room Air 03/21/25 11:37 Temperature 98 F 03/21/25 11:37 Pulse Rate 66 03/21/25 13:30 Respiratory Rate 16 03/21/25 13:30 Blood Pressure 122/64 03/21/25 13:30 Pulse Oximetry 98 03/21/25 13:30 Oxygen Delivery Room Air 03/21/25 11:37 Medical Decision Making MDM Narrative Medical decision making narrative: 34-year-old male present to the emergency department for evaluation for urinary pain and tenderness to his perineum. Patient denies any concern for high-risk sexual behavior. Patient states he is unable to wait for the gonorrhea and chlamydia testing to be resulted. Patient will be treated with 250 mg of IM Rocephin and p.o. doxy. Patient will have 14 days of doxy. Patient was educated on how to follow up with Urology as outpatient. All questions concerns were addressed. Patient was also informed on reasons to return to the emergency department. Differential Diagnosis Differential Diagnosis: Prostatitis. Urethritis, cystitis gonorrhea, chlamydia Vital Signs Vital Signs: Vital Signs Temperature 98 F 03/21/25 11:37 Pulse Rate 76 03/21/25 11:37 Respiratory Rate 17 03/21/25 11:37 Blood Pressure 118/51 L 03/21/25 11:37 Pulse Oximetry 98 03/21/25 11:37 Oxygen Delivery Room Air 03/21/25 11:37 Temperature 98 F 03/21/25 11:37 Pulse Rate 66 03/21/25 13:30 Respiratory Rate 16 03/21/25 13:30 Blood Pressure 122/64 03/21/25 13:30 Pulse Oximetry 98 03/21/25 13:30 Oxygen Delivery Room Air 03/21/25 11:37 Lab Data Lab results reviewed: Yes I reviewed the patient's lab results. Labs: Lab Results 03/21/25 Range/Units 11:48 Urine Color Yellow (Yellow) Urine Appearance Clear (Clear) Urine pH 6.5 (5.0-9.0) Ur Specific [place] 1.027 (1.001-1.035) Urine Protein Negative (Negative) mg/dL Urine Glucose (UA) Negative (Negative) mg/dL Urine Ketones Trace H (Negative) mg/dL Ur Blood (Man) Negative (Negative) Urine Nitrate Negative (Negative) Urine Bilirubin Negative (Negative) Urine Urobilinogen 1.0 (<2.0) mg/dL Leukocyte Esterase Rfl Negative (Negative) DEYANIRA/UL C. trachomatis (PCR) Not detected (NOT DETECTE) N. gonorrhoeae (PCR) Not detected (NOT DETECTE) Discharge Plan Discharge Clinical Impression: Dysuria, Prostatitis Patient Disposition: Home Condition: Stable Instructions: Antibiotic Form, Prostatitis (ED) Additional Instructions: Antibiotic as directed until completed. Naproxen as directed for the next 5 days. Have close follow-up with Urology. If you have any worsening symptoms then please call or return to the emergency department. Patient Language: Hebrew Prescriptions: New doxycycline monohydrate 100 mg capsule 100 mg PO Q12H 14 Days Qty: 28 0RF naproxen [Naprosyn] 500 mg tablet 500 mg PO BID 7 Days Qty: 14 0RF No Action clindamycin HCl 300 mg capsule 300 mg PO Q8H 10 Days Qty: 30 0RF sulfamethoxazole-trimethoprim 800-160 mg tablet 1 tablet PO Q12H 5 Days Qty: 10 0RF Follow-up/Referrals: Naida,DESIREE Solis [Primary Care Provider, Unknown] Ortiz Griffith MD [Physician, Urology]
[2025-03-21] MEDS: cefTRIAXone 1 GM VIAL 0.5 GM IM (13:25)
[2025-03-21] MEDS: DOXYCYCLINE HYCLATE 100 MG TABLET PO (13:25)
[2025-03-21] MEDS: LIDOCAINE 1% LOCAL INJ 10 ML VIAL (13:25)
[2025-03-21 13:30] VITALS: BP 122/64; PULSE 66; RESP 16; O2SAT 98
== END 2025-03-21 13:32 | disposition home or self-care (01) ==
PROVIDERS: Emergency Medicine; Emergency Provider Emergency Medicine; PCP Nurse Practitioner Family
DX: R30.0 Dysuria (principal); N41.9 Inflammatory disease of prostate, unspecified; F17.210 Nicotine dependence, cigarettes, uncomplicated; Z86.19 Personal history of other infectious and parasitic diseases
CPT/HCPCS: 81003; 87491; 87591; 96372; 99283; A9270; J0696; J2003